=== PATIENT | male | born 1960 | race Caucasian/White ===

== ENCOUNTER 2016-10-13 03:05 | Inpatient (IN) | payer OTHER ==
[~2016-10-13] VITALS: Ht 177.8 cm; Wt 70.3 kg
[2016-10-13 03:15] VITALS: BP 193/90
--- NOTE | 2016-10-13 03:20 | NUR ---
PT TAKEN TO BED 6
--- NOTE | 2016-10-13 03:25 | NUR ---
PATIENT PRESENTS TO ED WITH C/O SEVERE ABDOMINAL PAIN. VOMINTING X5 TIMES; SKIN IS PINK/WARM/DRY; AAOX4 WITH EVEN AND STEADY GAIT; LUNGS CLEAR BL; HR EVEN AND REGULAR; PT DENIES ANY FEVER, CP, SOB, OR COUGH AT THIS TIME; PATIENT STATES PAIN OF 10/10 AT THIS TIME; VSS; PATIENT POSITIONED FOR COMFORT; HOB ELEVATED; BEDRAILS UP X2; BED DOWN. ER MD MADE AWARE OF PT STATUS.
--- NOTE | 2016-10-13 03:29 | NUR ---
Dr. Chen evaluating patient at bedside.
[2016-10-13] MEDS ORDERED: ONDANSETRON 4 MG/2 ML VIAL IVP ONE (03:30)
[2016-10-13] MEDS ORDERED: NACL 0.9% 1,000 ML IV SCH (03:30)
[2016-10-13] MEDS ORDERED: PANTOPRAZOLE 40 MG INJ VIAL IVP ONE (03:30)
[2016-10-13] MEDS ORDERED: MORPHINE SULFATE 4 MG/ML SYR IVP ONE ×2 (03:30→05:10)
[2016-10-13 03:50] LABS: HEMATOCRIT 52.3 % (36-52); MEAN CORPUSCULAR HEMOGLOBIN 28 pg (27-31); MEAN CORPUSCULAR HGB CONC 32 g/dL (33-37); MEAN CORPUSCULAR VOLUME 88 fL (80-94); PLATELET COUNT (AUTO) 277 K/uL (140-450); RED BLOOD CELL COUNT(AUTO) 5.98 MIL/uL (4.20-6.10); RED CELL DISTRIBUTION WIDTH 13.2 % (11.6-13.7); WHITE BLOOD COUNT (AUTO) 20.1 K/uL (4.8-10.8)
[2016-10-13 04:01] LABS: ALBUMIN 4.2 g/dL (3.4-5.0); ANION GAP 16.2 (8-16); CARBON DIOXIDE 25.8 mmol/L (21-32); CREATININE 0.6 mg/dL (0.6-1.3); TOTAL BILIRUBIN 0.8 mg/dL (0.0-1.0); TOTAL PROTEIN, SERUM 8.4 g/dL (6.4-8.2)
[2016-10-13 04:04] LABS: EOSINOPHILS % (MANUAL) 1 % (0-4); LYMPHOCYTES % (MANUAL) 13 % (20-46); MONOCYTES % (MANUAL) 1 % (5-12); NEUTROPHILS % (MANUAL) 85 (43-65); PLATELET ESTIMATE ADEQUATE
--- NOTE | 2016-10-13 04:24 | NUR ---
PT TAKEN TO CT
[2016-10-13 04:40] LABS: APPEARANCE,URINE CLEAR (CLEAR); BILIRUBIN,URINE NEGATIVE (NEGATIVE); BLOOD, URINE TRACE-I (NEGATIVE); COLOR,URINE YELLOW (YELLOW); LEUKOCYTE ESTERASE ,URINE NEGATIVE (NEGATIVE); NITRITE, URINE NEGATIVE (NEGATIVE); PH,URINE 7.5 (5.0-9.0); PROTEIN,URINE 1+ (NEGATIVE); UGLUCOSE 1+ (NEGATIVE); UROBILINOGEN,URINE 0.2 EU/dL (0.2 - 1)
[2016-10-13] MEDS ORDERED: NACL 0.9% 1,000 ML IV ONE ×2 (04:45→05:05)
[2016-10-13] MEDS ORDERED: PIPERACILLIN/TAZOBACTAM 3.375 GM in DEXTROSE 5% 50 ML IV ONE (04:45)
[2016-10-13 04:52] LABS: BACTERIA,URINE RARE /HPF (None Seen); SQUAMOUS EPITHELIAL CELL,UR None Seen /LPF (0-3 (FEW)); WBC,URINE NONE SEEN /HPF (0-5)
[2016-10-13] MEDS ORDERED: PIPERACILLIN/TAZOBACTAM 3.375 GM VIAL IV ONE (04:59)
--- NOTE | 2016-10-13 05:00 | NUR ---
PT RETURNED FROM CT
[2016-10-13] MEDS ORDERED: MORPHINE SULFATE 2 MG/ML SYR IVP PRN (05:05)
[2016-10-13] MEDS ORDERED: DOCUSATE SODIUM 100 MG GELCAP PO PRN (05:05)
[2016-10-13] MEDS ORDERED: HYDROcodone/APAP 5/325 MG 1 TAB TAB PO PRN (05:05)
[2016-10-13] MEDS ORDERED: ACETAMINOPHEN 325 MG TAB PO PRN (05:05)
[2016-10-13] MEDS ORDERED: POTASSIUM CHLORIDE 10 MEQ TABER PO ONE (05:10)
--- NOTE | 2016-10-13 06:00 | NUR ---
REPORT GIVEN TO WOOD, CHARGE NURSE, PT IS GOING TO ADMITTED TO ROOM 112B.
[2016-10-13 06:34] LABS: LACTIC ACID 2.2 mmol/L (0.4-2.0)
[2016-10-13 06:35] LABS: INR 1.2 (0.8-1.2); PARTIAL THROMBOPLASTIN TIME 27.7 secs (22-35.6); PROTHROMBIN TIME 11.4 secs (10.8-13.4)
[2016-10-13 06:55] LABS: ALBUMIN 4.2 g/dL (3.4-5.0); BILIRUBIN,DIRECT 0.2 mg/dL (0.0-0.3); FREE T4 (FREE THYROXINE) 1.41 ng/dL (0.76-1.46); MAGNESIUM 1.7 mg/dL (1.8-2.4); PHOSPHORUS 3.1 mg/dL (2.5-4.9); THYROID STIMULATING HORMONE 0.58 uIU/mL (0.34-3.76); TOTAL BILIRUBIN 0.7 mg/dL (0.0-1.0); TOTAL PROTEIN, SERUM 8.4 g/dL (6.4-8.2)
--- NOTE | 2016-10-13 07:00 | NUR ---
PT TRANSFERRED TO ROOM 112B VIA RNEY, PT IS IN STABLE CONDITION AT THIS TIME, VSS.
--- NOTE | 2016-10-13 07:00 | NUR ---
PT AWAKE AND ALERT, NO SIGNS OF ACUTE DISTRESS, BREATHING EVEN AND UNLABORED BILATERALLY, BOWEL SOUNDS PRESENT IN ALL 4 QUADRANTS, NO ABDOMINAL DISTENTION, BOWEL AND BLADDER CONTINENCE, AMBULATES WITH ASSIST, BED IN LOW POSITION WITH BILATERAL HALF SIDE RAILS UP, CALL LIGHT WITHIN REACH, PT. COMPLAINT OF PAIN 9/10 IN ABDOMEN.
[2016-10-13 07:28] LABS: AMPHETAMINE, URINE NEG. ng/ml (NEG <=1000); BARBITURATE, URINE NEG. ng/ml (NEG <=200); BENZODIAZEPINE, URINE NEG. ng/mL (NEG <=200); CANNABINOID, URINE POS. ng/mL (NEG <=50); COCAINE, URINE NEG. ng/mL (NEG <=300); OPIATE, URINE NEG. ng/mL (NEG <=2000); PHENCYCLIDINE SCREEN,URINE NEG. ng/mL (NEG <=25)
[2016-10-13 08:00] VITALS: BP 165/116
[2016-10-13] MEDS ORDERED: MAGNESIUM OXIDE 400 MG TAB PO SCH (08:15)
[2016-10-13] MEDS: NACL 0.9% 1,000 ML IV SCH ×5 (08:31→23:42)
[2016-10-13] MEDS: ONDANSETRON 4 MG/2 ML VIAL IVP PRN ×2 (08:31→17:07)
[2016-10-13] MEDS: FOLIC ACID 1 MG TAB PO SCH (08:32)
[2016-10-13] MEDS: PANTOPRAZOLE 40 MG TABEC PO SCH (08:32)
[2016-10-13] MEDS: MULTIVITAMIN 1 TAB PO SCH (08:32)
[2016-10-13] MEDS: LISINOPRIL 5 MG TAB PO SCH (08:33)
[2016-10-13] MEDS: LORazepam 2 MG/ML VIAL IVP PRN ×2 (08:38→17:07)
--- NOTE | 2016-10-13 08:52 | NUR ---
CHYNA NOTE SPOKE WITH ADITYA OF [facility] PH# [phone]. SENT INITIAL REVIEW TO [facility] FAX# [phone] PH# [phone]
[2016-10-13 09:09] LABS: CHOL/HDL RATIO 5.8 (1-4.5)
[2016-10-13] MEDS ORDERED: hydrALAZINE 20 MG/ML VIAL IVP SCH (09:45)
[2016-10-13] MEDS: DOCUSATE SODIUM 100 MG GELCAP PO SCH ×2 (09:57→20:26)
[2016-10-13] MEDS ORDERED: POTASSIUM CHLORIDE 10 MEQ TABER PO SCH (10:30)
[2016-10-13] MEDS ORDERED: KCL 20 MEQ/WATER INJ PREMIX 200 ML IV SCH (10:30)
[2016-10-13] MEDS ORDERED: ATORVASTATIN 20 MG TAB PO SCH (10:30)
[2016-10-13] MEDS ORDERED: PNEUMOCOCCAL VACCINE 23 MCG/0.5 ML VIAL IMVAC SCH (11:00)
[2016-10-13 11:23] VITALS: BP 184/94
[2016-10-13] MEDS: AMPICILLIN/SULBACTAM 1.5 GM in NACL 0.9% 50 ML IV SCH ×2 (11:26→17:16)
[2016-10-13] MEDS: HYDROmorphone 1 MG/ML AMP IVP PRN ×3 (13:03→20:43)
[2016-10-13] MEDS: LORazepam 1 MG TAB PO SCH ×2 (13:03→20:26)
[2016-10-13 16:00] VITALS: BP 163/94
--- NOTE | 2016-10-13 18:56 | NUR ---
PT AWAKE AND ALERT, NO SIGNS OF ACUTE DISTRESS, BREATHING EVEN AND UNLABORED BILATERALLY, WILL ENDORSE TO INTERNIST NURSE FOR CONTINUITY OF CARE.
--- NOTE | 2016-10-13 19:06 | NUR ---
PT AWAKE AND ALERT, NO SIGNS OF ACUTE DISTRESS. ENDORSED TO PULMONARY SPECIALIST NURSE FOR CONTINUITY OF CARE.
--- NOTE | 2016-10-13 19:30 | NUR ---
RECEIVED REPORT FROM DAY RN AT BEDSIDE, PATIENT IS AAOX4 RESTING IN BED, ON ROOM AIR, NO SOB OR SIGN OF DISTRESS AT THIS TIME,IV TO RAC PATENT AND INTACT WITH IVF INFUSING WELL, SKIN INTACT, PATIENT NPO EXCEPT MEDS, EXPLAINED TO PATIENT, VERBALIZED UNDERSTANDING. DENIES PAIN AT THIS TIME, DISCUSSED PLAN OF CARE WITH PT, PT VERBALIZED UNDERSTANDING, CALL LIGHT WITHIN REACH. WILL CONTINUE TO MONITOR.
--- NOTE | 2016-10-13 20:47 | NUR ---
PM MEDS ADMINISTERED PATIENT TOLERATED WELL, WILL CONTINUE TO MONITOR.
--- NOTE | 2016-10-13 22:30 | NUR ---
PATIENT SLEEPING, NO SOB OR SIGN OF DISTRESS AT THIS TIME, CALL LIGHT WITHIN REACH. WILL CONTINUE TO MONITOR
[2016-10-14] VITALS: BP 143/80
[2016-10-14] MEDS: AMPICILLIN/SULBACTAM 1.5 GM in NACL 0.9% 50 ML IV SCH ×4 (00:18→17:01)
--- NOTE | 2016-10-14 00:21 | NUR ---
VITAL SIGNS STABLE, NO SOB OR SIGN OF DISTRESS AT THIS TIME,CALL LIGHT WITHIN REACH. WILL CONTINUE TO MONITOR.
[2016-10-14] MEDS: HYDROmorphone 1 MG/ML AMP IVP PRN ×5 (01:06→20:49)
--- NOTE | 2016-10-14 02:30 | NUR ---
PATIENT SLEEPING, NO SOB OR SIGN OF DISTRESS AT THIS TIME, CALL LIGHT WITHIN REACH. WILL CONTINUE TO MONITOR
--- NOTE | 2016-10-14 04:07 | NUR ---
PATIENT SLEEPING, NO SOB OR SIGN OF DISTRESS AT THIS TIME, CALL LIGHT WITHIN REACH. WILL CONTINUE TO MONITOR.
[2016-10-14] MEDS: LORazepam 1 MG TAB PO SCH ×3 (05:15→20:48)
[2016-10-14 06:12] LABS: BASOPHILS # (AUTO) 0.1 K/uL (0.00-0.22); BASOPHILS % (AUTO) 1.1 % (0.0-2.0); EOSINOPHILS # (AUTO) 0.2 K/uL (0-0.4); EOSINOPHILS % (AUTO) 2.3 % (0.0-4.0); HEMATOCRIT 47.1 % (36-52); HEMOGLOBIN 15.4 g/dL (12.0-18.0); LYMPHOCYTES # (AUTO) 1.3 K/uL (2.0-11.5); LYMPHOCYTES % (AUTO) 12.1 % (20.5-51.1); MEAN CORPUSCULAR HEMOGLOBIN 29 pg (27-31); MEAN CORPUSCULAR HGB CONC 33 g/dL (33-37); MEAN CORPUSCULAR VOLUME 88 fL (80-94); MONOCYTES # (AUTO) 0.9 K/uL (0.8-1.0); MONOCYTES % (AUTO) 8.2 % (1.7-9.3); NEUTROPHILS # (AUTO) 8.2 K/uL (1.8-7.7); NEUTROPHILS % (AUTO) 76.3 % (42.2-75.2); PLATELET COUNT (AUTO) 182 K/uL (140-450); RED BLOOD CELL COUNT(AUTO) 5.38 MIL/uL (4.20-6.10); RED CELL DISTRIBUTION WIDTH 13.4 % (11.6-13.7); WHITE BLOOD COUNT (AUTO) 10.7 K/uL (4.8-10.8)
[2016-10-14 06:37] LABS: MAGNESIUM 1.8 mg/dL (1.8-2.4); PHOSPHORUS 2.6 mg/dL (2.5-4.9)
[2016-10-14 06:39] LABS: ANION GAP 10.6 (8-16); CALCIUM 8.4 mg/dL (8.5-10.1); CARBON DIOXIDE 27.8 mmol/L (21-32); CREATININE 0.5 mg/dL (0.6-1.3); POTASSIUM 3.4 mmol/L (3.5-5.1)
[2016-10-14] MEDS: NACL 0.9% 1,000 ML IV SCH ×5 (07:05→21:48)
--- NOTE | 2016-10-14 07:33 | NUR ---
ENDORSED REPORT TO DAY RN AT BEDSIDE, PATIENT IN STABLE CONDITION
--- NOTE | 2016-10-14 07:35 | NUR ---
RECEIVED REPORT FROM NIGHT RN. PT AAOX4, IV PATENT AND INTACT, STATES ABD PAIN 11/11, WILL MEDICATE ORDERED, NO S/S OF ACUTE DISTRESS, CALL LIGHT WITHIN REACH, SAFETY MEASURE ENSURED, WILL CONTINUE TO MONITOR.
[2016-10-14 08:00] VITALS: BP 151/83
[2016-10-14] MEDS: MULTIVITAMIN 1 TAB PO SCH (09:52)
[2016-10-14] MEDS: DOCUSATE SODIUM 100 MG GELCAP PO SCH ×2 (09:52→20:49)
--- NOTE | 2016-10-14 09:52 | NUR ---
PT TOLERATED AM MEDS WELL, NO S/S OF DISTRESS, CALL LIGHT WITHIN REACH, WILL CONTINUE TO MONITOR
[2016-10-14] MEDS: LISINOPRIL 5 MG TAB PO SCH (09:53)
[2016-10-14] MEDS: ATORVASTATIN 20 MG TAB PO SCH (09:54)
[2016-10-14] MEDS: FOLIC ACID 1 MG TAB PO SCH (09:55)
[2016-10-14] MEDS: PANTOPRAZOLE 40 MG TABEC PO SCH (10:10)
--- NOTE | 2016-10-14 11:58 | NUR ---
PT SLEEPING IN BED , NO S/S OF ACUTE DISTRESS, CALL LIGHT WITHIN REACH, SAFETY MEASURE ENSURED, WILL CONTINUE TO MONITOR.
--- NOTE | 2016-10-14 14:30 | NUR ---
PT SLEEPING IN BED, NO S/S OF DISTRESS, CALL LIGHT WITHIN REACH, WILL CONTINUE TO MONITOR
[2016-10-14 16:00] VITALS: BP 154/86
[2016-10-14] MEDS ORDERED: POTASSIUM CHLORIDE 10 MEQ TABER PO SCH (16:30)
--- NOTE | 2016-10-14 17:21 | NUR ---
PT RESTING IN BED, PT STATED ABDOMINAL PAIN 5/10, MEDICATED ORDERED, NO S/S OF DISTRESS, CALL LIGHT WITHIN REACH, WILL CONTINUE TO MONITOR.
[2016-10-14] MEDS ORDERED: ZOLPIDEM 10 MG TAB PO PRN (17:25)
--- NOTE | 2016-10-14 19:23 | NUR ---
ENDORSED PLAN OF CARE TO NIGHT RN. PT REMAINS IN STABLE CONDITION.
--- NOTE | 2016-10-14 19:45 | NUR ---
RECEIVED REPORT FROM BALAJI MAURICE. PATIENT IS ALERT, AWAKE AND RESTING IN BED. NO SIGNS OF RESPIRATORY DISTRESS OR SOB NOTED. VITAL SIGNS ARE STABLE. NO REPORTS OF PAIN OR DISCOMFORT AT THIS TIME. BREATH SOUNDS ARE CLEAR AND BOWEL SOUNDS ARE ACTIVE. THERE IS A #20 IN THE PATIENT'S RIGHT AC RECEIVING NORMAL SALINE AT 220 ML/HR. SITE IS DRY, INTACT, AND PATENT. EXPLAINED PLAN OF CARE TONIGHT INCLUDES SCHEDULED MEDICATION ADMINISTRATION, VITAL SIGNS, AND MONITORING. PATIENT VERBALIZED UNDERSTANDING. PATIENT'S NEEDS MET AT THIS TIME. CALL LIGHT WITHIN REACH. WILL CONTINUE TO MONITOR PATIENT.
[2016-10-14 20:00] VITALS: BP 141/85
--- NOTE | 2016-10-14 21:03 | NUR ---
PATIENT TOLERATED DUE MEDICATIONS. PATIENT'S NEEDS MET AT THIS TIME. CALL LIGHT WITHIN REACH. WILL CONTINUE TO MONITOR PATIENT.
--- NOTE | 2016-10-14 22:52 | NUR ---
ROUNDED ON PATIENT. PATIENT RESTING COMFORTABLY IN BED. NO S/S OF RESPIRATORY DISTRESS OR DISCOMFORT NOTED. CALL LIGHT WITHIN REACH. CONTINUE TO MONITOR PATIENT.
[2016-10-15] VITALS: BP 156/86
[2016-10-15 00:20] LABS: BLOOD GAS BASE EXCESS -1.8 mmol/L (-2.0-2.0); BLOOD GAS PCO2 34.8 mmHg (20-50); BLOOD GAS PH 7.418 (7.35-7.45)
[2016-10-15 00:21] LABS: BLOOD GAS O2 SAT% 97.5 % (92.0-98.5); FRACTIONATED INSPIRED OXYGEN 0.21 % (0.21-100.00)
--- NOTE | 2016-10-15 00:30 | NUR ---
PATIENT RESTING IN BED, BUT IS AROUSED BY NAME. VITALS ARE WNL. PATIENT REPORTS ABDOMINAL PAIN 5/10. WILL MEDICATE PER DOCTOR'S ORDERS. PATIENT'S NEEDS MET AT THIS TIME. CALL LIGHT WITHIN REACH. WILL CONTINUE TO MONITOR PATIENT.
[2016-10-15] MEDS: AMPICILLIN/SULBACTAM 1.5 GM in NACL 0.9% 50 ML IV SCH ×3 (00:34→11:36)
[2016-10-15] MEDS: HYDROmorphone 1 MG/ML AMP IVP PRN ×3 (00:39→09:15)
[2016-10-15] MEDS: NACL 0.9% 1,000 ML IV SCH ×2 (04:22→10:17)
[2016-10-15] MEDS: LORazepam 1 MG TAB PO SCH (04:24)
--- NOTE | 2016-10-15 04:32 | NUR ---
PATIENT REPORTING ABDOMINAL PAIN 5/10. PATIENT'S BLOOD PRESSURE IS 165/88 AND HR 77. ADMINISTERED DILAUDID 1MG IVP PRN PER DOCTOR'S ORDERS. PATIENT'S NEEDS MET AT THIS TIME. CALL LIGHT WITHIN REACH. WILL CONTINUE TO MONITOR PATIENT.
--- NOTE | 2016-10-15 05:45 | NUR ---
ROUNDED ON PATIENT. PATIENT RESTING COMFORTABLY IN BED. NO S/S OF DISTRESS OR SOB NOTED. CALL LIGHT WITHIN REACH. CONTINUE TO MONITOR.
[2016-10-15 06:30] LABS: BASOPHILS # (AUTO) 0.1 K/uL (0.00-0.22); BASOPHILS % (AUTO) 1.9 % (0.0-2.0); EOSINOPHILS # (AUTO) 0.3 K/uL (0-0.4); EOSINOPHILS % (AUTO) 4.4 % (0.0-4.0); HEMATOCRIT 45.5 % (36-52); HEMOGLOBIN 14.7 g/dL (12.0-18.0); LYMPHOCYTES # (AUTO) 1.3 K/uL (2.0-11.5); LYMPHOCYTES % (AUTO) 17.4 % (20.5-51.1); MEAN CORPUSCULAR HEMOGLOBIN 28 pg (27-31); MEAN CORPUSCULAR HGB CONC 32 g/dL (33-37); MEAN CORPUSCULAR VOLUME 87 fL (80-94); MONOCYTES # (AUTO) 0.6 K/uL (0.8-1.0); MONOCYTES % (AUTO) 8.9 % (1.7-9.3); NEUTROPHILS % (AUTO) 67.4 % (42.2-75.2); PLATELET COUNT (AUTO) 165 K/uL (140-450); RED BLOOD CELL COUNT(AUTO) 5.24 MIL/uL (4.20-6.10); WHITE BLOOD COUNT (AUTO) 7.3 K/uL (4.8-10.8)
--- NOTE | 2016-10-15 06:43 | NUR ---
PATIENT AMBULATED TO BATHROOM. GAIT STEADY WITH NO SIGNS OF SOB NOTED. CONTINUE TO MONITOR.
--- NOTE | 2016-10-15 07:16 | NUR ---
PATIENT HAS BEEN SCREENED AND CATEGORIZED MODERATE NUTRITION RISK. PATIENT WILL BE SEEN WITHIN 3-5 DAYS OF ADMISSION. 10/15/16-10/17/16 DAKOTAH MCMANUS MS, RDN
--- NOTE | 2016-10-15 07:25 | NUR ---
PATIENT RESTING IN BED. ALL NEEDS ATTENDED TO DURING SHIFT. ENDORSED CONTINUITY OF CARE TO SANTIAGO RN.
--- NOTE | 2016-10-15 07:30 | NUR ---
REPORT RECEIVED FROM PRECISION DANCER, PT AWAKE ALERT OX4, RESP EVEN UNLABORED ON ROOM AIR, PT SPEAKS CLEARLY, ABD SOFT, TENDER TO PALP, STATES PAIN IS SLIGHTLY BOTHERSOME BUT TOLERABLE, PLAN OF CARE REVIEWED, DENIES IMMEDIATE NEEDS, CALL PRESTON WITHIN REACH, SAFETY MEASURES IN PLACE, WILL CONTINUE TO MONITOR.
[2016-10-15 08:00] VITALS: BP 151/89
[2016-10-15] MEDS: FOLIC ACID 1 MG TAB PO SCH (08:08)
[2016-10-15] MEDS: LISINOPRIL 5 MG TAB PO SCH (08:08)
[2016-10-15] MEDS: PANTOPRAZOLE 40 MG TABEC PO SCH (08:09)
[2016-10-15] MEDS: ATORVASTATIN 20 MG TAB PO SCH (08:09)
[2016-10-15] MEDS: MULTIVITAMIN 1 TAB PO SCH (08:10)
[2016-10-15] MEDS: DOCUSATE SODIUM 100 MG GELCAP PO SCH (08:10)
[2016-10-15 08:52] LABS: ANION GAP 16.2 (8-16); CALCIUM 8.2 mg/dL (8.5-10.1); CARBON DIOXIDE 23.9 mmol/L (21-32); CREATININE 0.4 mg/dL (0.6-1.3); POTASSIUM 3.1 mmol/L (3.5-5.1)
[2016-10-15 09:16] LABS: MAGNESIUM 1.7 mg/dL (1.8-2.4); PHOSPHORUS 3.4 mg/dL (2.5-4.9)
--- NOTE | 2016-10-15 10:20 | NUR ---
PT SEVERO PO FULL LIQ WELL, NO C/O N/V/PAIN, PT UP OUT OF BED TO BATHROOM WITH STEADY GAIT, CALL PRESTON WITHIN REACH, WILL CONTINUE TO MONITOR.
[2016-10-15] MEDS ORDERED: ACET-2858 PO (10:37)
[2016-10-15] MEDS ORDERED: LISI10TA11 PO (10:37)
[2016-10-15] MEDS ORDERED: ONDA4TAB PO (10:37)
[2016-10-15] MEDS ORDERED: MAGN400T7 PO (10:37)
[2016-10-15] MEDS ORDERED: DOCU-67 PO (10:37)
[2016-10-15] MEDS ORDERED: POTA10TA10 PO (10:37)
[2016-10-15] MEDS ORDERED: POTASSIUM CHLORIDE 10 MEQ TABER PO SCH (11:00)
[2016-10-15] MEDS ORDERED: MAGNESIUM OXIDE 400 MG TAB PO SCH (11:00)
[2016-10-15] MEDS ORDERED: ATOR20TA PO (11:03)
[2016-10-15] MEDS ORDERED: OMEP20TC24 PO (11:14)
[2016-10-15] MEDS ORDERED: LISINOPRIL 5 MG TAB PO SCH (11:30)
[2016-10-15 11:45] VITALS: BP 153/82
[2016-10-15 12:05] VITALS: BP 153/82
--- NOTE | 2016-10-15 12:39 | NUR ---
DISCHARGE INSTRUCTIONS AND RX GIVEN AND EXPLAINED TO PT, PT VERBALIZED FULL UNDERSTANDING, IV DC'D, CATH TIP INTACT, BLEEDING CONTROLLED, PT UP OUT OF BED WITHOUT PROBLEM, ESCORTED OUT FOR DC.
== END 2016-10-15 12:30 | disposition home or self-care (01) | DRG 720 ==
LOC: MED 03:05 → MTU 05:07
PROVIDERS: ADMIT Family Medicine; ATTEND Family Medicine
DX: A41.9 Sepsis, unspecified organism (principal); N17.0 Acute kidney failure with tubular necrosis; K85.90 Acute pancreatitis without necrosis or infection, unspecified; E83.42 Hypomagnesemia; K86.0 Alcohol-induced chronic pancreatitis; K29.70 Gastritis, unspecified, without bleeding; E87.6 Hypokalemia; F10.20 Alcohol dependence, uncomplicated; K86.3 Pseudocyst of pancreas; E78.5 Hyperlipidemia, unspecified; Y90.9 Presence of alcohol in blood, level not specified; Z53.29 Procedure and treatment not carried out because of patient's decision for other reasons
CPT/HCPCS: 36415; 36600; 71010; 76705; 80048; 80053; 80076; 80305; 81001; 82140; 82150; 82803; 83036; 83605; 83615; 83690; 83735; 83880; 84100; 84439; 84443; 85025; 85610; 85730; 87040; 87081; 87086; 93005; 96361; 96365; 96375; 96376; 99291; C9113; G0482; J0295; J0360; J1170; J2060; J2270; J2405; J2543; J3480; J7030; J7060; Q0092; Q9967

== ENCOUNTER 2016-11-20 12:45 | Inpatient (IN) | payer OTHER ==
[~2016-11-20] VITALS: Ht 177.8 cm; Wt 65.8 kg
[~2016-11-20 12:45] MED LIST: ACET-2858 PO; ATOR20TA PO; DOCU-67 PO; LISI10TA11 PO; MAGN400T7 PO; OMEP20TC24 PO; ONDA4TAB PO; POTA10TA10 PO
[2016-11-20] MEDS ORDERED: ALUMINUM HYD/MAG/SIMETHICONE 30 ML, DICYCLOMINE HCL LIQUID 20 MG, LIDOCAINE VISCOUS 2% ... PO ONE ×3 (12:55)
[2016-11-20 13:37] LABS: ALBUMIN 4.3 g/dL (3.4-5.0); ANION GAP 22.5 (8-16); CALCIUM 8.7 mg/dL (8.5-10.1); CARBON DIOXIDE 20.4 mmol/L (21-32); CREATININE 0.5 mg/dL (0.6-1.3); TOTAL BILIRUBIN 0.9 mg/dL (0.0-1.0); TOTAL PROTEIN, SERUM 8.6 g/dL (6.4-8.2)
[2016-11-20 13:38] LABS: BASOPHILS # (AUTO) 0.3 K/uL (0.00-0.22); BASOPHILS % (AUTO) 1.8 % (0.0-2.0); EOSINOPHILS # (AUTO) 0.3 K/uL (0-0.4); EOSINOPHILS % (AUTO) 1.8 % (0.0-4.0); HEMATOCRIT 51.1 % (36-52); HEMOGLOBIN 16.7 g/dL (12.0-18.0); LYMPHOCYTES # (AUTO) 0.8 K/uL (2.0-11.5); LYMPHOCYTES % (AUTO) 4.4 % (20.5-51.1); MEAN CORPUSCULAR HEMOGLOBIN 28 pg (27-31); MEAN CORPUSCULAR HGB CONC 33 g/dL (33-37); MEAN CORPUSCULAR VOLUME 87 fL (80-94); MONOCYTES # (AUTO) 0.6 K/uL (0.8-1.0); MONOCYTES % (AUTO) 3.4 % (1.7-9.3); NEUTROPHILS # (AUTO) 16.8 K/uL (1.8-7.7); NEUTROPHILS % (AUTO) 88.6 % (42.2-75.2); PLATELET COUNT (AUTO) 193 K/uL (140-450); RED CELL DISTRIBUTION WIDTH 14.3 % (11.6-13.7)
[2016-11-20 13:43] LABS: POTASSIUM 2.9 mmol/L (3.5-5.1)
[2016-11-20] MEDS ORDERED: POTASSIUM CHLORIDE 10 MEQ TABER PO ONE (13:45)
[2016-11-20 13:47] LABS: WHITE BLOOD COUNT (AUTO) 18.8 K/uL (4.8-10.8)
--- NOTE | 2016-11-20 14:10 | NUR ---
PATIENT BIB FAMILY C/O N/V AND ABD PAIN x 1 DAY. . PT STATES PAIN STARTED AFTER DRINKING ALCOHOL .SKIN IS PINK/WARM/DRY; AAOX4 WITH EVEN AND STEADY GAIT; LUNGS CLEAR BL; HR EVEN AND REGULAR; PT DENIES ANY FEVER, CP, SOB, OR COUGH AT THIS TIME; PATIENT STATES PAIN OF 10/10 ABDOMINAL PAIN AT THIS TIME;PATIENT POSITIONED FOR COMFORT; HOB ELEVATED; BEDRAILS UP X2; BED DOWN. ALL MONITORS IN PLACED.
[2016-11-20] MEDS ORDERED: NACL 0.9% 1,000 ML IV ONE ×2 (14:20→16:10)
[2016-11-20] MEDS ORDERED: MORPHINE SULFATE 4 MG/ML SYR IVP ONE ×2 (14:20→16:40)
--- NOTE | 2016-11-20 14:27 | NUR ---
Dr. Ho evaluating patient at bedside.
[2016-11-20] MEDS ORDERED: HYDROcodone/APAP 5/325 MG 1 TAB TAB PO PRN (14:55)
[2016-11-20] MEDS ORDERED: ACETAMINOPHEN 325 MG TAB PO PRN (14:55)
[2016-11-20] MEDS ORDERED: ONDANSETRON 4 MG/2 ML VIAL IVP PRN (14:55)
[2016-11-20] MEDS ORDERED: hydrALAZINE 20 MG/ML VIAL IVP ONE ×2 (15:25→17:00)
--- NOTE | 2016-11-20 15:29 | NUR ---
PT HAS A BLOOD PRESSURE OF 184/106;RECHECKED BP STILL HIGH;NOTIFIED DELANEY HERNANDEZ;
--- NOTE | 2016-11-20 15:55 | NUR ---
RECHECKED BP;BP OF 185/97;
[2016-11-20 16:00] LABS: APPEARANCE,URINE CLEAR (CLEAR); BILIRUBIN,URINE NEGATIVE (NEGATIVE); BLOOD, URINE 1+ (NEGATIVE); COLOR,URINE YELLOW (YELLOW); LEUKOCYTE ESTERASE ,URINE NEGATIVE (NEGATIVE); NITRITE, URINE NEGATIVE (NEGATIVE); PROTEIN,URINE TRACE (NEGATIVE); UGLUCOSE NEGATIVE (NEGATIVE); UROBILINOGEN,URINE 0.2 EU/dL (0.2 - 1)
[2016-11-20] MEDS ORDERED: ENALAPRILAT 2.5 MG/2 ML VIAL IVP ONE (16:10)
[2016-11-20 16:11] LABS: FREE T4 (FREE THYROXINE) 1.16 ng/dL (0.76-1.46); MAGNESIUM 1.7 mg/dL (1.8-2.4); PHOSPHORUS 3.4 mg/dL (2.5-4.9); THYROID STIMULATING HORMONE 0.81 uIU/mL (0.34-3.76)
[2016-11-20 16:12] LABS: AMPHETAMINE, URINE NEG. ng/ml (NEG <=1000); BARBITURATE, URINE NEG. ng/ml (NEG <=200); BENZODIAZEPINE, URINE NEG. ng/mL (NEG <=200); CANNABINOID, URINE POS. ng/mL (NEG <=50); COCAINE, URINE NEG. ng/mL (NEG <=300); OPIATE, URINE NEG. ng/mL (NEG <=2000); PHENCYCLIDINE SCREEN,URINE NEG. ng/mL (NEG <=25)
--- NOTE | 2016-11-20 16:15 | NUR ---
BP OF 193/103;AFTER HYDRALAZINE;NOTIFIED ER MD;ORDERED VASOTEC;WILL; CONTINUE TO MONITOR PT.
[2016-11-20 16:16] LABS: INR 1.1 (0.8-1.2); PARTIAL THROMBOPLASTIN TIME 26.5 secs (22-35.6); PROTHROMBIN TIME 11.4 secs (10.8-13.4)
[2016-11-20 16:24] LABS: BACTERIA,URINE None Seen /HPF (None Seen); RBC,URINE 0-5 (RARE) /HPF (0-5); SQUAMOUS EPITHELIAL CELL,UR None Seen /LPF (0-3 (FEW)); WBC,URINE NONE SEEN /HPF (0-5)
--- NOTE | 2016-11-20 16:40 | NUR ---
SPOKE TO REGARDING PATIENTS UNCONTROLLED BP AFTER GIVING APRESOLIN 5MG AND VASOTEC 5MG.BP STILL 193/103. SUGGESTED TO IF WILL CONSIDER BE ADMITTED TO ICU INSTEAD OF TELEMETRY. DR. SOLIMAN WILL CALL ME BACK AFTER TALKING TO YUVAL.
--- NOTE | 2016-11-20 17:00 | NUR ---
DR. RIVERA CALLED BACK AND SPOKE TO . PER DR. RIVERA WILL SEND PATIENT TO TELEMETRY. SPOKE TO TELEMETRY CHARGE NURSE NINFA. NURSING SAMPLE WASHER BAKARI TALKING TO DR. SOLIMAN.
--- NOTE | 2016-11-20 17:14 | NUR ---
RECHECKED BP;193/99;HR OF 90;PLACED PT IN COMFORTABLE POSITION;SAFETY MEASURES DONE;WILL CONTINUE TO MONITOR PT.
--- NOTE | 2016-11-20 17:31 | NUR ---
CALLED ICU TO GIVE REPORT;INFORMED ME THEY WILL CALL BACK AFTER 5 MINUTES BECAUSE THEY DON'T HAVE A BED YET;
--- NOTE | 2016-11-20 17:44 | NUR ---
Patient will be admitted to care of DR RIVERA. Admited to ICU. Belongings list completed. Report to KAYLENE MENEZES.
--- NOTE | 2016-11-20 17:50 | NUR ---
ADMITTED PT FROM ER BY [facility], PT AWAKE, ALERT, AND ORIENTED. BEDSIDE MONITOR SHOWS SR. ON ROOM AIR, NO S/S OF RESPIRATORY DISTRESS NOTED. ABDOMEN SOFT WITH ACTIVE BOWEL SOUNDS. PT ABLE TO MOVE ALL HIS EXTREMITIES. IV TO LEFT AC # 20, INTACT AND PATENT. BP 193/115. NOTIFIED DR. RO. POC EXPLAINED TO PT, PT VERBALIZED UNDERSTANDING, HOB ELEVATED 30 DEGREES WITH LOW BED POSITION. CALL LIGHT IN REACH, WILL CONTINUE TO MONITOR.
[2016-11-20 18:00] VITALS: BP 193/115
[2016-11-20] MEDS: NACL 0.9% 1,000 ML IV SCH ×2 (18:00→21:38)
--- NOTE | 2016-11-20 18:30 | NUR ---
IN TO SEE PT. WILL FOLLOW UP.
[2016-11-20] MEDS ORDERED: LORazepam 2 MG/ML VIAL IVP PRN (19:05)
[2016-11-20] MEDS ORDERED: KETOROLAC 15 MG/ML VIAL IVP PRN (19:05)
[2016-11-20] MEDS ORDERED: hydrALAZINE 20 MG/ML VIAL IVP PRN (19:05)
[2016-11-20] MEDS ORDERED: NACL 0.9% 500 ML IV ONE (19:10)
[2016-11-20] MEDS ORDERED: MAG SULF 2000 MG/WATER PREMIX 50 ML IV ONE (19:10)
[2016-11-20] MEDS ORDERED: POTASSIUM CHLORIDE 40 MEQ, LIDOCAINE 1% 25 MG in NACL 0.9% 250 ML IV ONE (19:10)
--- NOTE | 2016-11-20 19:10 | NUR ---
REPORT GIVEN TO TERESA. PT AWAKE, ALERT, AND ORIENTED. NO SOB. BP 186/94. O2 SAT 96%.
--- NOTE | 2016-11-20 19:20 | NUR ---
RECEIVED REPORT FROM DAY NURSE CLIF, KAYLENE FOR CONTINUATION OF CARE. PT IS AAOX4. PT IS ON ROOM AIR WITH NO S/S OF ACUTE RESP DISTRESS. PT LAND MANAGER SHOWS SR AT THIS TIME WITH A HR OF 95. PT HAS LEFT FA#20 IV SITE RUNNING NS AT 150ML/HR. IV SITE IS PATENT DRY AND INTACT. GOOD BLOOD RETURN NOTED.ABDOMEN IS SOFT WITH ACTIVE BOWEL SOUNDS. PT SKIN INTACT. PT ABLE TO MOVE ALL EXTREMITIES WITH NO DIFFICULTY. BED IN LOW POSITION, HOB UP 30 DEGREES. CALL LIGHT LEFT WITHIN REACH. SAFETY PRECAUTIONS MAINTAINED. WILL CONTINUE TO CLOSELY MONITOR.
--- NOTE | 2016-11-20 19:25 | NUR ---
CALLED AND SPOKE WITH DR KOFI RES IN REGARDS TO PAIN MED ORDER AND NPO ORDER. STATED HE WILL UPDATE ORDERS. WILL FOLLOW UP.
[2016-11-20 19:42] LABS: LACTIC ACID 1.5 mmol/L (0.4-2.0)
[2016-11-20 20:00] VITALS: BP 212/99
--- NOTE | 2016-11-20 20:00 | NUR ---
CALLED AND SPOKE WITH ADA FROM [facility] IN REGARDS TI VERIFYING MEDICATIONS. SHE STATED THAT THEY ARE HAVING TROUBLE ACCESSING OUR HOSPITAL AND WILL TAKE SOME TIME TO VERIFY ORDERS. WILL FOLLOW UP.
[2016-11-20] MEDS: MORPHINE SULFATE 2 MG/ML SYR IVP PRN ×2 (20:10→23:48)
--- NOTE | 2016-11-20 20:10 | NUR ---
MATT FROM [facility] CALLED AND SPOKE TO US REGARDING PATIENT HAVING A BLOOD CULTURE DONE BEFORE STARTING IV ANTIBIOTICS TONIGHT. WILL FOLLOW UP WITH ORDERS.
--- NOTE | 2016-11-20 20:20 | NUR ---
INFORMED DR. GOODMAN ON THE PHONE WHAT FREDERIC FROM CORPORATE OFFICE TOLD US TO ORDER BLOOD CULTURE TO THIS PATIENT BEFORE STARTING THE ANTIBIOTIC TONIGHT, HE SAID, HE'LL PUT THE ORDER.
[2016-11-20] MEDS: POTASSIUM CHLORIDE 10 MEQ TABER PO SCH (20:23)
[2016-11-20] MEDS ORDERED: LABETALOL 100 MG/20 ML VIAL IV ONE (20:25)
--- NOTE | 2016-11-20 20:40 | NUR ---
PT APPEARS TO BE SLEEPING AT THIS TIME. NO SOB NOTED. CURRENT BP IS 174/95
[2016-11-20] MEDS: LORazepam 1 MG TAB PO SCH (21:19)
[2016-11-20] MEDS ORDERED: KCL 20 MEQ/WATER INJ PREMIX 200 ML IV SCH (21:50)
[2016-11-20] MEDS ORDERED: cloNIDine 0.1 MG TAB PO SCH ×2 (21:50→22:00)
[2016-11-20] MEDS ORDERED: KCL 20 MEQ/WATER INJ PREMIX 0 ML IV ONE (21:51)
[2016-11-20] MEDS ORDERED: LIDOCAINE MPF 1% 50 MG/5 ML VIAL ONE (21:53)
[2016-11-20] MEDS ORDERED: ENALAPRILAT 2.5 MG/2 ML VIAL IVP SCH (21:55)
--- NOTE | 2016-11-20 21:59 | NUR ---
PT TAKEN OFF UNIT TO HAVE CT DONE.
--- NOTE | 2016-11-20 22:07 | NUR ---
PT BACK ON UNIT FROM HAVING CT DONE
--- NOTE | 2016-11-20 22:30 | NUR ---
TRANSFERRED PT TO [facility] FLOOR RM 106B ACCOMPANIED BY KAYLENE MOORE AND RENA CELESTE RN. PT VITALS STABLE. BEDSIDE REPORT GIVEN TO KAYLENE COLLADO.
[2016-11-20 22:35] VITALS: BP 164/94
--- NOTE | 2016-11-20 22:35 | NUR ---
RECEIVED PT TRANSFER FROM ICU ,REPORT GIVEN BY TERESA. ON TELE MONITOR. AWAKE,ALERT AND ORIENTED X4. WITH NO ACUTE DISTRESS NOTED. NO C/O PAIN A THIS TIME. HAS IVF INFUSING WELL ON THE LT FA#20. CLEAR AND PATENT. PLAN OF CARE DISCUSSED AND VERBALIZED UNDERSTANDING. CALL LIGHT AND URINAL PLACED WITHIN EASY REACH. WILL CONTINUE TO MONITOR.
[2016-11-20 23:55] VITALS: BP 150/89
[2016-11-20] MEDS: METOPROLOL 25 MG TAB PO SCH (23:55)
[2016-11-21] MEDS: AMPICILLIN/SULBACTAM 3 GM in NACL 0.9% 100 ML IV SCH ×4 (00:47→17:10)
[2016-11-21] MEDS ORDERED: AMPICILLIN/SULBACTAM 3 GM VIAL ONE ×2 (00:49→05:43)
--- NOTE | 2016-11-21 02:30 | NUR ---
PATIENT ASLEEP AT THIS TIME, RESPIRATION EVEN AND UNLABORED, NO S/S OF ACUTE DISTRESS NOTED, CALL LIGHT WITHIN REACH, SAFETY MEASURE ENSURED, WILL CONTINUE TO MONITOR.
[2016-11-21 04:00] VITALS: BP 155/89
[2016-11-21] MEDS: NACL 0.9% 1,000 ML IV SCH ×4 (04:14→20:56)
[2016-11-21] MEDS: MORPHINE SULFATE 2 MG/ML SYR IVP PRN ×3 (04:41→17:10)
--- NOTE | 2016-11-21 04:41 | NUR ---
PATIENT STATED PAIN 8/10 AROUND, EPIGASTRIC AREA, MEDICATED ORDERED, NO S/S OF ACUTE DISTRESS NOTED, RESPIRATION EVEN AND UNLABORED, CALL LIGHT WITHIN REACH, SAFETY MEASURE ENSURED, WILL CONTINUE TO MONITOR
[2016-11-21] MEDS: LORazepam 1 MG TAB PO SCH ×3 (05:44→20:55)
[2016-11-21 06:42] LABS: BASOPHILS % (AUTO) 0.3 % (0.0-2.0); EOSINOPHILS # (AUTO) 0.2 K/uL (0-0.4); EOSINOPHILS % (AUTO) 1.3 % (0.0-4.0); HEMATOCRIT 49.7 % (36-52); HEMOGLOBIN 16.4 g/dL (12.0-18.0); LYMPHOCYTES # (AUTO) 0.8 K/uL (2.0-11.5); LYMPHOCYTES % (AUTO) 6.2 % (20.5-51.1); MEAN CORPUSCULAR HEMOGLOBIN 29 pg (27-31); MEAN CORPUSCULAR HGB CONC 33 g/dL (33-37); MEAN CORPUSCULAR VOLUME 87 fL (80-94); MONOCYTES # (AUTO) 1.1 K/uL (0.8-1.0); MONOCYTES % (AUTO) 8.2 % (1.7-9.3); NEUTROPHILS # (AUTO) 10.9 K/uL (1.8-7.7); PLATELET COUNT (AUTO) 181 K/uL (140-450); RED BLOOD CELL COUNT(AUTO) 5.73 MIL/uL (4.20-6.10); RED CELL DISTRIBUTION WIDTH 14.1 % (11.6-13.7)
--- NOTE | 2016-11-21 07:21 | NUR ---
ENDORSED PLAN OF CARE TO DAY RN. PATIENT IS STABLE.
--- NOTE | 2016-11-21 07:23 | NUR ---
ENDORSED PT IN STABLE CONDITION TO AM NURSE.
--- NOTE | 2016-11-21 07:25 | NUR ---
RECEIVED REPORT FROM PM SHIFT RN AT BEDSIDE. PT IS SLEEPING, AROUSED EASILY. BREATHING EVEN AND UNLABORED. LEFT FA #20G IV ACCESS INTACT AND PATENT WITH IVF INFUSING @ 200 ML/HR. PT DENIED ANY CHEST PAIN, SOB, OR ANY DISCOMFORT AT THIS TIME AND VERBALIZED UNDERSTANDING NPO EXCEPT MEDS & PLAN OF CARE. CALL LIGHT WITHIN REACH. BED IN LOW POSITION. WILL CONTINUE TO MONITOR.
--- NOTE | 2016-11-21 07:36 | NUR ---
PATIENT HAS BEEN SCREENED AND CATEGORIZED HIGH NUTRITION RISK. PATIENT WILL BE SEEN WITHIN 1-2 DAYS OF ADMISSION. 11/21/16-11/22/[address]
[2016-11-21 07:43] LABS: ANION GAP 14.3 (8-16); CALCIUM 8.8 mg/dL (8.5-10.1); CARBON DIOXIDE 26.4 mmol/L (21-32); CREATININE 0.5 mg/dL (0.6-1.3); POTASSIUM 3.7 mmol/L (3.5-5.1)
[2016-11-21 07:58] LABS: CHOL/HDL RATIO 5.3 (1-4.5); PHOSPHORUS 3.3 mg/dL (2.5-4.9)
[2016-11-21 08:00] VITALS: BP 147/77
[2016-11-21] MEDS: LISINOPRIL 10 MG TAB PO SCH ×2 (08:48→20:54)
[2016-11-21] MEDS: METOPROLOL 25 MG TAB PO SCH ×2 (08:48→20:55)
[2016-11-21] MEDS: PANTOPRAZOLE 40 MG TABEC PO SCH (08:49)
[2016-11-21] MEDS: POTASSIUM CHLORIDE 10 MEQ TABER PO SCH ×2 (08:49→20:55)
[2016-11-21] MEDS: MAGNESIUM OXIDE 400 MG TAB PO SCH (08:49)
[2016-11-21] MEDS: ATORVASTATIN 20 MG TAB PO SCH (08:49)
--- NOTE | 2016-11-21 08:50 | NUR ---
SCHEDULED/DUE PO MEDS GIVEN ORDERED WITH SIP OF WATER AND TOLERATED WELL BY PT.
[2016-11-21] MEDS ORDERED: NON-FORMULARY ITEM (Omeprazole (Omeprazole) 1 TAB) PO SCH (09:00)
[2016-11-21] MEDS ORDERED: LISINOPRIL 10 MG TAB PO SCH (09:00)
--- NOTE | 2016-11-21 09:26 | NUR ---
CM NOTE INITIAL REVIEW FAXED TO [facility] [phone] CHYNA KEMPHA PH [phone]
[2016-11-21 12:00] VITALS: BP 144/83
--- NOTE | 2016-11-21 12:00 | NUR ---
INFORMED TO DR. KIRBY THAT KCL 40 mEq + xylocaline 1% IVPB Once should be cancelled. Pt has already had a dose of K rider. Per, Dr. KIRBY, HE WILL CANCEL THE ACTIVE ORDER.
--- NOTE | 2016-11-21 13:10 | NUR ---
IVPB GIVEN ORDERED AND INFUSING WELL. SCHEDULED/DUE PO MEDS GIVEN ORDERED WITH SIP OF WATER AND TOLERATED WELL BY PT.
[2016-11-21 16:00] VITALS: BP 147/74
--- NOTE | 2016-11-21 16:00 | NUR ---
V/S STABLE. SR ON MONITOR. NO ACUTE DISTRESS, NO SOB NOTED. CALL LIGHT WITHIN REACH.
--- NOTE | 2016-11-21 18:00 | NUR ---
PT RESTING IN BED IN NO ACUTE DISTRESS. CALL LIGHT WITHIN REACH.
--- NOTE | 2016-11-21 19:30 | NUR ---
ENDORSED REPORT AT BEDSIDE TO SHIRT IRONER SUPERVISOR RN FOR CONTINUITY OF CARE.
--- NOTE | 2016-11-21 19:35 | NUR ---
RECEIVED REPORT FROM DAY RN. PATIENT RESTING IN BED, PATIENT AWAKE, ALERT, ORIENTEDX4, DENIES PAIN AT THIS TIME. NO S/S OF ACUTE DISTRESS NOTED, IV PATENT AND INTACT, FLUIDS INFUSING WELL, CALL LIGHT WITHIN REACH, SAFETY MEASURE ENSURED, WILL CONTINUE TO MONITOR
[2016-11-21 20:00] VITALS: BP 144/81
[2016-11-22] VITALS (7 sets, daily range): BP systolic 136–147; BP diastolic 77–84
[2016-11-22] MEDS: AMPICILLIN/SULBACTAM 3 GM in NACL 0.9% 100 ML IV SCH ×4 (00:26→17:03)
[2016-11-22] MEDS ORDERED: AMPICILLIN/SULBACTAM 3 GM VIAL ONE (00:26)
[2016-11-22] MEDS: MORPHINE SULFATE 2 MG/ML SYR IVP PRN ×5 (00:28→23:18)
--- NOTE | 2016-11-22 00:28 | NUR ---
PATIENT REPORTED PAIN 8/10, MEDICATED ORDERED, NO S/S OF ACUTE DISTRESS NOTED, CALL LIGHT WITHIN REACH, WILL CONTINUE TO MONITOR.
[2016-11-22] MEDS: NACL 0.9% 1,000 ML IV SCH ×6 (00:58→17:07)
--- NOTE | 2016-11-22 03:30 | NUR ---
PATIENT ASLEEP IN BED, RESPIRATION EVEN AND UNLABORED, CALL LIGHT WITHIN REACH, SAFETY MEASURE ENSURED, WILL CONTINUE TO MONITOR
[2016-11-22] MEDS: LORazepam 1 MG TAB PO SCH ×3 (05:00→20:19)
--- NOTE | 2016-11-22 05:43 | NUR ---
PATIENT REPORTED PAIN 8/10, MEDICATED ORDERED, CALL LIGHT WITHIN REACH, SAFETY MEASURE ENSURED, WILL CONTINUE TO MONITOR.
[2016-11-22 06:15] LABS: BASOPHILS # (AUTO) 0.2 K/uL (0.00-0.22); EOSINOPHILS # (AUTO) 0.2 K/uL (0-0.4); EOSINOPHILS % (AUTO) 2.1 % (0.0-4.0); HEMATOCRIT 47.2 % (36-52); HEMOGLOBIN 15.2 g/dL (12.0-18.0); LYMPHOCYTES # (AUTO) 1.6 K/uL (2.0-11.5); LYMPHOCYTES % (AUTO) 19.8 % (20.5-51.1); MEAN CORPUSCULAR HEMOGLOBIN 28 pg (27-31); MEAN CORPUSCULAR HGB CONC 32 g/dL (33-37); MEAN CORPUSCULAR VOLUME 88 fL (80-94); MONOCYTES # (AUTO) 0.5 K/uL (0.8-1.0); MONOCYTES % (AUTO) 6.7 % (1.7-9.3); NEUTROPHILS # (AUTO) 5.5 K/uL (1.8-7.7); NEUTROPHILS % (AUTO) 69.4 % (42.2-75.2); PLATELET COUNT (AUTO) 163 K/uL (140-450); RED CELL DISTRIBUTION WIDTH 14.3 % (11.6-13.7)
[2016-11-22 07:08] LABS: ALBUMIN 3.2 g/dL (3.4-5.0); ANION GAP 13.7 (8-16); CALCIUM 8.5 mg/dL (8.5-10.1); CREATININE 0.5 mg/dL (0.6-1.3); POTASSIUM 3.7 mmol/L (3.5-5.1); TOTAL BILIRUBIN 1.9 mg/dL (0.0-1.0); TOTAL PROTEIN, SERUM 6.9 g/dL (6.4-8.2)
[2016-11-22 07:27] LABS: INR 1.1 (0.8-1.2)
--- NOTE | 2016-11-22 07:30 | NUR ---
ENDORSED PLAN OF CARE TO DAY RN, PATIENT IN STABLE CONDITION
--- NOTE | 2016-11-22 07:30 | NUR ---
RECEIVED PT IN BED. AWAKE. ALERT ORIENTEDX4. NO SOB NOTED. DENIES ANY PAIN OR DISCOMFORT AT THIS TIME. POSITIVE BOWEL SOUNDS NOTED ON FOUR QUADRANTS. PT AMBULATORY. SAFETY PRECAUTION IN PLACE. CALL LIGHT WITHIN REACH. OFFERED URINAL NEEDED. DENIES ANY PAIN OR DISCOMFORT WITH BLADDER OR BOWEL ELIMINATION AT THIS TIME.
--- NOTE | 2016-11-22 09:01 | NUR ---
CM NOTE CONCURRENT REVIEW FAXED TO [facility] [phone] CHYNA YE PH [phone] TRACKING# [id number]
[2016-11-22] MEDS: PANTOPRAZOLE 40 MG TABEC PO SCH (09:12)
[2016-11-22] MEDS: POTASSIUM CHLORIDE 10 MEQ TABER PO SCH ×2 (09:12→20:19)
[2016-11-22] MEDS: ATORVASTATIN 20 MG TAB PO SCH (09:13)
[2016-11-22] MEDS: METOPROLOL 25 MG TAB PO SCH ×2 (09:13→20:20)
[2016-11-22] MEDS: LISINOPRIL 10 MG TAB PO SCH ×2 (09:13→20:21)
[2016-11-22] MEDS: MAGNESIUM OXIDE 400 MG TAB PO SCH (09:13)
--- NOTE | 2016-11-22 12:39 | NUR ---
MIGUEL FROM THE RADIOLOGY DEPT CAME TO TRANSITION LEAD PT FOR THE CT NEEDLE BIOPSY. UNHOOKED PT FROM IV. TICKET TO RIDE PROVIDED. NO SOB NOTED. DENIES ANY PAIN OR DISCOMFORT AT THIS TIME PT ALERT ORIENTED X4.
--- NOTE | 2016-11-22 13:12 | NUR ---
11/22/16 RD INITIAL ASSESSMENT COMPLETED PLEASE REFER TO NUTRITION ASSESSMENT UNDER CARE ACTIVITY FOR ESTIMATED NUTRITIONAL NEEDS. 1. WHEN MEDICALLY FEASIBLE, INITIATE PO DIET TO START ON CLEAR LIQUID DIET AND ADVANCE TOLERATED TO REGULAR DIET 2. RD TO FOLLOW-UP 2-3 DAYS; HIGH RISK PHILIP CURIEL, HELGA
--- NOTE | 2016-11-22 13:35 | NUR ---
MIGUEL BROUGHT BACK PT FROM RADIOLOGY DEPT FOR CT NEEDLE BIOPSY. ACCORDING TO HER THEY TRIED TO DO THE PROCEDURE BUT WHERE NOT ABLE TO, AND SHE ALREADY LET DR. MARIO KNOW ABOUT IT. PT ON STABLE CONDITION NO NOB NOTED. DENIES ANY PAIN OR DISCOMFORT AT THIS TIME. OFFERED CLEAR LIQUID FOOD A TOLERATED PER MD ORDER. PT TOLERATED WELL. VITAL SIGNS TAKEN AND RECORDED.
--- NOTE | 2016-11-22 14:00 | NUR ---
PT TOLERATED WELL HIS CLEAR LIQUID DIET. CONSUMED 100% OF HIS LATE LUNCH. DR. MARIO MADE AWARE. AND PT REQUESTED TO ADVANCE HIS DIET TO REGULAR. MD ORDER MADE AND CARRIED OUT.
--- NOTE | 2016-11-22 18:57 | NUR ---
PT CONSUMED 100% OF HIS DINNER. NO SOB NOTED. DENIES ANY PAIN OR DISCOMFORT AT THIS TIME. PT VERBALIZED HE WAS SATISFIED WITH THE DINNER.
--- NOTE | 2016-11-22 19:28 | NUR ---
PT KEPT CLEAN, DRY AND COMFORTABLE, NEEDS ATTENDED. ENDORSED TO NEXT SHIFT FOR CONTINUITY OF CARE. PT ON STABLE CONDITION.
--- NOTE | 2016-11-22 19:30 | NUR ---
RECEIVED REPORT FROM DELBERT MAURICE AT BEDSIDE. PT IS ALERT, AWAKE ORIENTED X4. INITIAL ASSESSMENT DONE. NO S/S OF RESPIRATORY DISTRESS OR SOB NOTED. C/O ABDOMINAL PAIN SCALING 9/10. GIVEN PRN MEDICATION FOR ABDOMINAL PAIN ORDERED. PLAN OF CARE REVIEWED TO PT AND VERBALIZED UNDERSTANDING. CALL LIGHT WITHIN REACH. WILL CONTINUE TO MONITOR.
[2016-11-23] VITALS: BP 121/76
[2016-11-23] MEDS: NACL 0.9% 1,000 ML IV SCH ×2 (00:11→04:33)
[2016-11-23] MEDS: AMPICILLIN/SULBACTAM 3 GM in NACL 0.9% 100 ML IV SCH ×3 (00:11→12:15)
--- NOTE | 2016-11-23 01:10 | NUR ---
PT IS SLEEPING RIGHT NOW BUT EASILY AROUSABLE. NO S/S OF ANY DISCOMFORT AT THIS TIME. ALL NEEDS ARE ATTENDED. CALL LIGHT WITHIN REACH. WILL CONTINUE TO MONITOR.
[2016-11-23] MEDS: HYDROcodone/APAP 7.5/325 MG 1 TAB PO PRN ×2 (03:20→09:12)
[2016-11-23 04:00] VITALS: BP 123/72
[2016-11-23] MEDS: LORazepam 1 MG TAB PO SCH ×2 (04:32→12:15)
--- NOTE | 2016-11-23 05:00 | NUR ---
AM CARE RENDERED. BED LINEN CHANGED. INSTRUCTED PT TO REPOSITION. KEPT CLEAN AND DRY. CALL LIGHT WITHIN REACH. WILL CONTINUE TO MONITOR.
[2016-11-23 06:10] LABS: BASOPHILS # (AUTO) 0.2 K/uL (0.00-0.22); BASOPHILS % (AUTO) 3.1 % (0.0-2.0); EOSINOPHILS # (AUTO) 0.3 K/uL (0-0.4); EOSINOPHILS % (AUTO) 3.2 % (0.0-4.0); HEMATOCRIT 43.4 % (36-52); HEMOGLOBIN 14.4 g/dL (12.0-18.0); LYMPHOCYTES # (AUTO) 1.3 K/uL (2.0-11.5); LYMPHOCYTES % (AUTO) 16.1 % (20.5-51.1); MEAN CORPUSCULAR HEMOGLOBIN 29 pg (27-31); MEAN CORPUSCULAR HGB CONC 33 g/dL (33-37); MEAN CORPUSCULAR VOLUME 87 fL (80-94); MONOCYTES # (AUTO) 0.6 K/uL (0.8-1.0); MONOCYTES % (AUTO) 7.3 % (1.7-9.3); NEUTROPHILS # (AUTO) 5.4 K/uL (1.8-7.7); NEUTROPHILS % (AUTO) 70.3 % (42.2-75.2); PLATELET COUNT (AUTO) 150 K/uL (140-450); RED CELL DISTRIBUTION WIDTH 14.2 % (11.6-13.7); WHITE BLOOD COUNT (AUTO) 7.8 K/uL (4.8-10.8)
[2016-11-23 06:34] LABS: MAGNESIUM 1.7 mg/dL (1.8-2.4); PHOSPHORUS 4.2 mg/dL (2.5-4.9)
[2016-11-23 06:36] LABS: ANION GAP 13.5 (8-16); CALCIUM 8.5 mg/dL (8.5-10.1); CARBON DIOXIDE 25.8 mmol/L (21-32); CREATININE 0.5 mg/dL (0.6-1.3); POTASSIUM 3.3 mmol/L (3.5-5.1)
--- NOTE | 2016-11-23 07:22 | NUR ---
RECEIVED PT IN BED AWAKE, ALERT ORIENTED X4. NO SOB NOTED. DENIES ANY PAIN OR DISCOMFORT AT THIS TIME. POSITIVE BOWEL SOUNDS NOTED ON FOUR QUADRANTS. PT AMBULATORY TO THE BATHROOM. DENIES ANY PROBLEM WITH BOWEL OR BLADDER ELIMINATION AT THIS TIME. SAFETY PRECAUTION IN PLACE. CALL LIGHT WITHIN REACH.
--- NOTE | 2016-11-23 07:25 | NUR ---
PT HAS NO S/S OF ANY DISCOMFORT. PLAN OF CARE ENDORSE TO DELBERT MAURICE AT BEDSIDE FOR CONTINUITY OF CARE.
[2016-11-23 08:00] VITALS: BP 138/79
[2016-11-23] MEDS: LISINOPRIL 10 MG TAB PO SCH (09:11)
[2016-11-23] MEDS: METOPROLOL 25 MG TAB PO SCH (09:11)
[2016-11-23] MEDS: ATORVASTATIN 20 MG TAB PO SCH (09:11)
[2016-11-23] MEDS: PANTOPRAZOLE 40 MG TABEC PO SCH (09:11)
[2016-11-23] MEDS: POTASSIUM CHLORIDE 10 MEQ TABER PO SCH (09:12)
[2016-11-23] MEDS: MAGNESIUM OXIDE 400 MG TAB PO SCH (09:12)
--- NOTE | 2016-11-23 09:19 | NUR ---
CM NOTE CONCURRENT REVIEW FAXED TO [facility] [phone] CHYNA YE PH [phone] XAVI MONROY [phone] TRACKING# [id number]
[2016-11-23] MEDS ORDERED: ARTIFICIAL TEARS OPHTH OINT 3.5 GM TUBE OP PRN (10:10)
[2016-11-23] MEDS ORDERED: LISI10TA11 PO (10:25)
[2016-11-23] MEDS ORDERED: LOVA20TA8 PO (10:25)
[2016-11-23] MEDS ORDERED: FAMO-90 PO (10:26)
[2016-11-23] MEDS ORDERED: METO25TA PO (10:30)
[2016-11-23] MEDS ORDERED: IBUP-2213 PO (10:30)
--- NOTE | 2016-11-23 11:03 | NUR ---
LEXI ARTHUR SISTER OF PT CALLED AND MADE AWARE OF PT DISCHARGE SINCE ACCORDING TO PT NO ONE WILL PICK HIM UP. ACCORDING TO SISTER THEIR HOUSE IS LOCK AND NO ONE WILL BE AT HOME UNTIL 3PM SO IF OK TO DISCHARGE PT AT 3PM SO SOMEONE CAN OPEN THE DOOR FOR HIM. LEXI ARTHUR NUMBER [phone].
--- NOTE | 2016-11-23 11:36 | NUR ---
Social Service Note: I met with patient at bedside. Patient speaks Lao and [place]. He stated he prefers to speak [place]. Per patient, he is in the process of moving to [place], [facility] [place] [facility] [place]. He reported he is planning to go to his new home (between [facility] [place] [facility], [place], in [facility]) post discharge. He stated he does not know his new address. He reported none of his family members may pick him up from hospital and take him to his new home. He requested a bus pass, I informed patient's nurse Ale of this.
[2016-11-23] MEDS ORDERED: HYDR-4446 PO (11:51)
[2016-11-23 12:00] VITALS: BP 133/80
[2016-11-23] MEDS ORDERED: MAGNESIUM OXIDE 400 MG TAB PO SCH (12:00)
--- NOTE | 2016-11-23 12:35 | NUR ---
PER PT, HIS FRIEND WILL PICK HIM UP AFTER HIS IV ANTIBIOTIC IS FINISHED AND DISCHARGE PAPERS ARE SIGNED. AND HE DOESN'T NEED THE BUS PASS ANYMORE. AND HE HAS A REID FOR THEIR HOUSE.
--- NOTE | 2016-11-23 13:50 | NUR ---
DISCHARGE INSTRUCTIONS AND HEALTH TEACHINGS GIVEN TO PT. PT VERBALIZED UNDERSTANDING. PT SIGNED DISCHARGE PAPERS. SISTER IN LAW CAME TO NUCLEAR REACTOR TECHNICIAN PT. ARMBAND REMOVED. IV CANNULA REMOVED AND INTACT. TELEBOX REMOVED. VITAL SIGNS TAKEN AND RECORDED. PT ON STABLE CONDITION. NO SOB. DENIES ANY PAIN OR DISCOMFORT AT THIS TIME.
--- NOTE | 2016-11-23 13:55 | NUR ---
PT WHEELED OUT TO THE HOSPITAL PARKING LOT. NO SOB NOTED. DENIES ANY PAIN OR DISCOMFORT AT THIS TIME. SISTER IN LAW PICKED UP PT ON THEIR PRIVATE OWNED VEHICLE. PT WENT HOME ON STABLE CONDITION.
--- NOTE | 2016-11-23 13:56 | NUR ---
FAXED H AND P, LABS, IMAGING, CONSULTATION, AND NOTES. TO [facility] [phone] PER MD ORDER BY BRIDGES AND BUILDINGS SUPERVISOR. CONFIRMATION RECEIVED.
--- NOTE | 2016-11-24 14:38 | NUR ---
CALLED [facility] AND SPOKE WITH XAVI MONROY AND INFORMED HER THAT PATIENT WAS DISCHARGED ON 11/23/16 PHONE [phone].
== END 2016-11-23 13:55 | disposition home or self-care (01) | DRG 720 ==
LOC: MED 12:45 → MTU 14:54 → MIC 17:34 → MTU 22:25
PROVIDERS: ADMIT Family Medicine; ATTEND Family Medicine
DX: A41.9 Sepsis, unspecified organism (principal); N17.0 Acute kidney failure with tubular necrosis; K85.20 Alcohol induced acute pancreatitis without necrosis or infection; J84.10 Pulmonary fibrosis, unspecified; K86.89 Other specified diseases of pancreas; E83.42 Hypomagnesemia; K86.3 Pseudocyst of pancreas; I10 Essential (primary) hypertension; E87.6 Hypokalemia; Y90.9 Presence of alcohol in blood, level not specified; F10.20 Alcohol dependence, uncomplicated; F12.10 Cannabis abuse, uncomplicated; Z79.899 Other long term (current) drug therapy; Z91.14 Patient's other noncompliance with medication regimen; Z71.51 Drug abuse counseling and surveillance of drug abuser
CPT/HCPCS: 36415; 71010; 74150; 80048; 80053; 80305; 81001; 82150; 83036; 83605; 83615; 83690; 83735; 83880; 84100; 84439; 84443; 85025; 85610; 85730; 87040; 87081; 96361; 96365; 96375; 96376; 99285; G0482; J0295; J0360; J2001; J2270; J2405; J3475; J3480; J3490; J7030; Q0092

== ENCOUNTER 2016-12-07 20:35 | Inpatient (IN) | payer OTHER ==
[~2016-12-07] VITALS: Ht 180.3 cm; Wt 65.8 kg
[~2016-12-07 20:35] MED LIST changes: -ACET-2858 PO; -ATOR20TA PO; +FAMO-90 PO; +HYDR-4446 PO; +IBUP-2213 PO; +LOVA20TA8 PO; -MAGN400T7 PO; -OMEP20TC24 PO; -ONDA4TAB PO; -POTA10TA10 PO
[2016-12-07 20:47] VITALS: BP 187/110
--- NOTE | 2016-12-07 21:07 | NUR ---
PHLEB DRAWING LABS
[2016-12-07 21:23] LABS: HEMOGLOBIN 15.7 g/dL (12.0-18.0); MEAN CORPUSCULAR HEMOGLOBIN 28 pg (27-31); MEAN CORPUSCULAR HGB CONC 33 g/dL (33-37); MEAN CORPUSCULAR VOLUME 86 fL (80-94); PLATELET COUNT (AUTO) 231 K/uL (140-450); RED BLOOD CELL COUNT(AUTO) 5.56 MIL/uL (4.20-6.10); RED CELL DISTRIBUTION WIDTH 14.2 % (11.6-13.7); WHITE BLOOD COUNT (AUTO) 17.8 K/uL (4.8-10.8)
[2016-12-07 21:25] LABS: BAND % (MANUAL) 2 % (0-8); EOSINOPHILS % (MANUAL) 2 % (0-4); METAMYELOCYTES % 2 % (0-0); MONOCYTES % (MANUAL) 4 % (5-12); MYELOCYTES % 3 % (0-0); NEUTROPHILS % (MANUAL) 76 (43-65)
[2016-12-07 21:26] LABS: LYMPHOCYTES % (MANUAL) 11 % (20-46); PLATELET ESTIMATE ADEQUATE
[2016-12-07 21:33] LABS: ANION GAP 15.3 (8-16); CALCIUM 8.5 mg/dL (8.5-10.1); CARBON DIOXIDE 26.9 mmol/L (21-32); CREATININE 0.6 mg/dL (0.7-1.3); POTASSIUM 3.2 mmol/L (3.5-5.1)
[2016-12-07 21:39] LABS: ALBUMIN 4.1 g/dL (3.4-5.0); TOTAL BILIRUBIN 0.7 mg/dL (0.0-1.0); TOTAL PROTEIN, SERUM 8.2 g/dL (6.4-8.2)
[2016-12-07 21:45] LABS: INR 1.1 (0.8-1.2); PARTIAL THROMBOPLASTIN TIME 28.4 secs (22-35.6); PROTHROMBIN TIME 11.5 secs (10.8-13.4)
--- NOTE | 2016-12-07 22:07 | NUR ---
PT TAKEN TO BED 7
--- NOTE | 2016-12-07 22:15 | NUR ---
56Y M BIB SELF C/O RUQ PAIN X 2 HOURS, PAIN 10/10 WITH VOMITING. PT DENIES ANY SOB/CP AT THE MOMENT. PT IS AAOX4. PT DENIES ANY MEDICAL HX AND NKA.
--- NOTE | 2016-12-07 22:20 | NUR ---
PT BP IS 194/[address] ALMONTE HAS BEEN INFORMED AND AWARE.
[2016-12-07] MEDS ORDERED: MORPHINE SULFATE 4 MG/ML SYR IVP ONE ×2 (22:35→23:10)
[2016-12-07] MEDS ORDERED: NACL 0.9% 1,000 ML IV ONE (22:35)
--- NOTE | 2016-12-07 23:05 | NUR ---
Dr. Ho evaluating patient at bedside.
[2016-12-07] MEDS ORDERED: ONDANSETRON 4 MG/2 ML VIAL IVP ONE (23:10)
[2016-12-07] MEDS: NACL 0.9% 1,000 ML IV SCH (23:21)
[2016-12-07] MEDS ORDERED: DOCUSATE SODIUM 100 MG GELCAP PO PRN (23:25)
[2016-12-07] MEDS ORDERED: HYDROcodone/APAP 7.5/325 MG 1 TAB PO PRN (23:25)
[2016-12-07] MEDS ORDERED: ONDANSETRON 4 MG/2 ML VIAL IM/IVP PRN (23:25)
[2016-12-07] MEDS ORDERED: MORPHINE SULFATE 2 MG/ML SYR IVP PRN (23:25)
[2016-12-07] MEDS ORDERED: ACETAMINOPHEN 325 MG TAB PO PRN (23:25)
[2016-12-07] MEDS ORDERED: cefTRIAXone 1,000 MG VIAL ONE (23:26)
--- NOTE | 2016-12-07 23:29 | NUR ---
PER DR ALMONTE, PT OKAY TO ADMIT TO FLOOR WITH BP 193/98.
--- NOTE | 2016-12-07 23:37 | NUR ---
Patient will be admitted to care of DR ROMERO . Admited to TELE 106B. Will go to room 106B. Belongings list completed. Report to SANGEETA MAURICE .
--- NOTE | 2016-12-07 23:41 | NUR ---
X-Ray at bedside.
--- NOTE | 2016-12-07 23:46 | NUR ---
Patient will be admitted to care of DR ROMERO. Admited to TELE. Will go to room 106B. Belongings list completed. Report to
[2016-12-08 00:10] VITALS: BP 188/94
--- NOTE | 2016-12-08 00:10 | NUR ---
PT CAME TO THE UNIT VIA GURNEY. AMBULATED TO THE BED. NO S/S OF DISTRESS. AOX4. COMPLAINTS OF ABDOMINAL PAIN. WITH AN IV AT THE RIGHT AC 18 G. SKIN INTACT. ORIENTED PATIENT TO THE UNIT, ROOM, AND CALL LIGHT. DISCUSSED PLAN OF CARE WITH PATIENT. CALL LIGHT WITHIN REACH. WILL CONTINUE TO MONITOR FOR ANY CHANGES.
[2016-12-08] MEDS ORDERED: LORazepam 1 MG TAB PO PRN ×2 (00:25)
--- NOTE | 2016-12-08 00:25 | NUR ---
TALKED TO DR BYERS IN REGARDS TO PT'S PAIN, MORPHINE GIVEN IN THE ED AT 2328. PT STILL COMPLAINING OF PAIN OF 03/13. NOTED BY DR. BYERS. STATED HE WILL PUT IN ORDERS OF DILAUDID.
[2016-12-08 00:36] LABS: AMYLASE 149 U/L (25-115); CHOL/HDL RATIO 5.4 (1-4.5); CHOLESTEROL 234 mg/dL (<200); CREATINE KINASE, TOTAL 85 U/L (39-308); FREE T4 (FREE THYROXINE) 1.27 ng/dL (0.76-1.46); HDL CHOLESTEROL 43 mg/dL (40-60); LDL (CALC) 162 mg/dL (60-100); MAGNESIUM 1.8 mg/dL (1.8-2.4); THYROID STIMULATING HORMONE 1.66 uIU/mL (0.34-3.74); TRIGLYCERIDES 149 mg/dL (30-150)
[2016-12-08 01:00] LABS: ALCOHOL, BLOOD < 3 mg/dL (<3); LACTATE DEHYDROGENASE 160 U/L (85-227)
[2016-12-08] MEDS ORDERED: HYDROmorphone 1 MG/ML AMP ONE (01:00)
[2016-12-08] MEDS ORDERED: ENALAPRILAT 2.5 MG/2 ML VIAL IVP PRN (01:55)
[2016-12-08] MEDS ORDERED: KCL 20 MEQ/WATER INJ PREMIX 100 ML IV SCH (02:00)
--- NOTE | 2016-12-08 02:00 | NUR ---
ADMINISTERED K MARIA ELENA PER MD ORDER. NOTED PT'S BLOOD PRESSURE OF 176/90. DR BYERS AWARE. STATED HE PUT IN ORDERS OF PRN VASOTEC IF NEEDED.
[2016-12-08 02:19] LABS: AMPHETAMINE, URINE NEG. ng/ml (NEG <=1000); BARBITURATE, URINE NEG. ng/ml (NEG <=200); BENZODIAZEPINE, URINE NEG. ng/mL (NEG <=200); CANNABINOID, URINE POS. ng/mL (NEG <=50); COCAINE, URINE NEG. ng/mL (NEG <=300); OPIATE, URINE POS. ng/mL (NEG <=2000); PHENCYCLIDINE SCREEN,URINE NEG. ng/mL (NEG <=25)
[2016-12-08 02:24] LABS: APPEARANCE,URINE CLEAR (CLEAR); BILIRUBIN,URINE NEGATIVE (NEGATIVE); BLOOD, URINE TRACE-I (NEGATIVE); COLOR,URINE YELLOW (YELLOW); LEUKOCYTE ESTERASE ,URINE NEGATIVE (NEGATIVE); NITRITE, URINE NEGATIVE (NEGATIVE); PH,URINE 7.5 (5.0-9.0); PROTEIN,URINE NEGATIVE (NEGATIVE); UGLUCOSE 1+ (NEGATIVE); UROBILINOGEN,URINE 0.2 EU/dL (0.2 - 1)
[2016-12-08 03:17] LABS: BACTERIA,URINE None Seen /HPF (None Seen); RBC,URINE 0-5 (RARE) /HPF (0-5); SQUAMOUS EPITHELIAL CELL,UR 0-3 (FEW) /LPF (0-3 (FEW)); WBC,URINE NONE SEEN /HPF (0-5)
[2016-12-08 04:00] VITALS: BP 159/92
--- NOTE | 2016-12-08 04:00 | NUR ---
VITAL SIGNS STABLE. WILL CONTINUE TO MONITOR. NO S/S OF DISTRESS. CALL LIGHT WITHIN REACH
[2016-12-08] MEDS: HYDROmorphone 1 MG/ML AMP IVP PRN ×4 (04:51→21:20)
[2016-12-08] MEDS: LORazepam 1 MG TAB PO SCH ×3 (05:34→20:57)
[2016-12-08 06:27] LABS: BASOPHILS # (AUTO) 0.6 K/uL (0.00-0.22); BASOPHILS % (AUTO) 4.4 % (0.0-2.0); EOSINOPHILS # (AUTO) 0.2 K/uL (0-0.4); EOSINOPHILS % (AUTO) 1.6 % (0.0-4.0); HEMATOCRIT 48.9 % (36-52); HEMOGLOBIN 16.2 g/dL (12.0-18.0); LYMPHOCYTES # (AUTO) 0.9 K/uL (2.0-11.5); LYMPHOCYTES % (AUTO) 6.2 % (20.5-51.1); MEAN CORPUSCULAR HEMOGLOBIN 29 pg (27-31); MEAN CORPUSCULAR HGB CONC 33 g/dL (33-37); MEAN CORPUSCULAR VOLUME 86 fL (80-94); MONOCYTES # (AUTO) 0.6 K/uL (0.8-1.0); MONOCYTES % (AUTO) 4.7 % (1.7-9.3); NEUTROPHILS # (AUTO) 11.5 K/uL (1.8-7.7); NEUTROPHILS % (AUTO) 83.1 % (42.2-75.2); PLATELET COUNT (AUTO) 220 K/uL (140-450); RED CELL DISTRIBUTION WIDTH 14.2 % (11.6-13.7); WHITE BLOOD COUNT (AUTO) 13.8 K/uL (4.8-10.8)
[2016-12-08 06:39] LABS: ANION GAP 13.2 (8-16); CALCIUM 8.4 mg/dL (8.5-10.1); CARBON DIOXIDE 26.5 mmol/L (21-32); CREATININE 0.5 mg/dL (0.7-1.3); POTASSIUM 3.7 mmol/L (3.5-5.1)
--- NOTE | 2016-12-08 07:22 | NUR ---
ENDORSED TO AM NURSE FOR CONTINUITY OF CARE. PT IN STABLE CONDITION. NO S/S OF DISTRESS.
--- NOTE | 2016-12-08 07:25 | NUR ---
RECEIVED REPORT FROM KAYLENE PALOMO. PT IS AOX4. COMPLAINTS OF ABDOMINAL PAIN. WITH AN IV AT THE RIGHT AC 18 G. SKIN INTACT. ORIENTED PATIENT TO THE UNIT, ROOM, AND CALL LIGHT. DISCUSSED PLAN OF CARE WITH PATIENT. CALL LIGHT WITHIN REACH. WILL CONTINUE TO MONITOR FOR ANY CHANGES.
[2016-12-08 08:00] VITALS: BP 161/96
[2016-12-08] MEDS: THIAMINE 100 MG TAB PO SCH (08:27)
[2016-12-08] MEDS: FAMOTIDINE 20 MG TAB PO SCH (08:27)
[2016-12-08] MEDS: LISINOPRIL 10 MG TAB PO SCH ×2 (08:27→20:58)
[2016-12-08] MEDS: FOLIC ACID 1 MG TAB PO SCH (08:27)
[2016-12-08] MEDS: MULTIVITAMIN 1 TAB PO SCH (08:27)
[2016-12-08] MEDS ORDERED: LOVASTATIN 20 MG PO SCH (09:00)
--- NOTE | 2016-12-08 09:20 | NUR ---
CHYNA NOTE INITIAL REVIEW FAXED TO ALBERTO MORSE [phone] PH [phone] [phone] Addendum: 12/08/16 at 1218 by Martine Arias CM ALBERTO MORAN PH (C) [phone] FAX [phone]
--- NOTE | 2016-12-08 09:39 | NUR ---
PATIENT HAS BEEN SCREENED AND CATEGORIZED MODERATE NUTRITION RISK. PATIENT WILL BE SEEN WITHIN 3-5 DAYS OF ADMISSION. 12/10/16-12/12/[address]
[2016-12-08] MEDS: HYDROcodone/APAP 7.5/325 MG 1 TAB PO PRN ×2 (10:02→17:28)
[2016-12-08] MEDS: NACL 0.9% 1,000 ML IV SCH ×3 (11:53→20:58)
[2016-12-08 12:00] VITALS: BP 120/83
[2016-12-08 16:00] VITALS: BP 127/72
--- NOTE | 2016-12-08 19:30 | NUR ---
PT ENDORSED TO KAYLENE MEDINA. FOR CONTINUITY OF CARE, PT STABLE AT THIS TIME.
--- NOTE | 2016-12-08 19:31 | NUR ---
RECEIVED REPORT FROM AM NURSE. PT RESTING IN BED, AOX4, ABLE TO VERBALIZE NEEDS. PT C/O ABD PAIN, SEE PAIN ASSESSMENT. WILL ADMINISTER PAIN MED ORDERED. PT DENIES N/V/D. MANAGER TRADE IN PLACE. BOTH IV ACCESS ASYMPTOMATIC PATENT AND INTACT. IVF INFUSING WELL ON IV LEFT FOREARM. DISCUSSED AND REVIEWED PLAN OF CARE WITH PT. PT INSTRUCTED TO REMAIN ON CLEAR LIQUID DIET AND TO USE CALL LIGHT FOR ASSISTANCE TO COLLECT STOOL SAMPLE. SAFETY MEASURES ENSURED. CALL LIGHT WITHIN REACH. WILL CONTINUE TO MONITOR.
[2016-12-08 20:00] VITALS: BP 119/70
[2016-12-08] MEDS ORDERED: traZODone 50 MG TAB PO SCH ×3 (20:00)
[2016-12-08] MEDS ORDERED: SIMVASTATIN 10 MG TAB PO SCH (21:00)
--- NOTE | 2016-12-08 21:00 | NUR ---
ADMINISTERED DUE MEDS WITH EDUCATION. PT VERBALIZED UNDERSTANDING, TOLERATED WELL. PT C/O PAIN. SEE PAIN ASSESSMENT. ADMINISTERED PAIN MEDICATION WITH EDUCATION. SAFETY MEASURES ENSURED. CALL LIGHT WITHIN REACH.
[2016-12-08] MEDS ORDERED: LISINOPRIL 20 MG TAB PO SCH (23:40)
[2016-12-09] VITALS: BP 112/65
--- NOTE | 2016-12-09 | NUR ---
PT SLEEPING. ALL NEEDS MET. IVF INFUSING WELL. CONDITION STABLE. SAFETY MEASURES ENSURED. CALL LIGHT WITHIN REACH.
[2016-12-09] MEDS: NACL 0.9% 1,000 ML IV SCH ×3 (00:58→14:18)
[2016-12-09] MEDS: HYDROmorphone 1 MG/ML AMP IVP PRN ×2 (03:30→06:33)
--- NOTE | 2016-12-09 03:30 | NUR ---
PT C/O ABD PAIN. SEE PAIN ASSESSMENT. ADMINISTERED PAIN MED ORDERED. SAFETY MEASURES ENSURED. CALL LIGHT WITHIN REACH.
[2016-12-09 04:00] VITALS: BP 123/71
[2016-12-09] MEDS: LORazepam 1 MG TAB PO SCH ×2 (04:56→13:32)
[2016-12-09 06:29] LABS: BASOPHILS # (AUTO) 0.1 K/uL (0.00-0.22); BASOPHILS % (AUTO) 1.5 % (0.0-2.0); EOSINOPHILS # (AUTO) 0.3 K/uL (0-0.4); EOSINOPHILS % (AUTO) 3.1 % (0.0-4.0); HEMOGLOBIN 13.9 g/dL (12.0-18.0); LYMPHOCYTES # (AUTO) 1.2 K/uL (2.0-11.5); LYMPHOCYTES % (AUTO) 14.8 % (20.5-51.1); MEAN CORPUSCULAR HEMOGLOBIN 29 pg (27-31); MEAN CORPUSCULAR HGB CONC 33 g/dL (33-37); MEAN CORPUSCULAR VOLUME 87 fL (80-94); MONOCYTES # (AUTO) 0.5 K/uL (0.8-1.0); MONOCYTES % (AUTO) 6.5 % (1.7-9.3); NEUTROPHILS # (AUTO) 6.1 K/uL (1.8-7.7); NEUTROPHILS % (AUTO) 74.1 % (42.2-75.2); PLATELET COUNT (AUTO) 164 K/uL (140-450); RED BLOOD CELL COUNT(AUTO) 4.81 MIL/uL (4.20-6.10); RED CELL DISTRIBUTION WIDTH 14.2 % (11.6-13.7); WHITE BLOOD COUNT (AUTO) 8.2 K/uL (4.8-10.8)
[2016-12-09] MEDS ORDERED: traZODone 50 MG TAB PO SCH (07:00)
[2016-12-09 07:23] LABS: ANION GAP 12.2 (8-16); CALCIUM 7.8 mg/dL (8.5-10.1); CARBON DIOXIDE 26.2 mmol/L (21-32); CREATININE 0.6 mg/dL (0.7-1.3); POTASSIUM 3.4 mmol/L (3.5-5.1)
[2016-12-09 07:26] LABS: MAGNESIUM 1.7 mg/dL (1.8-2.4); PHOSPHORUS 4.2 mg/dL (2.5-4.9)
--- NOTE | 2016-12-09 07:32 | NUR ---
RECEIVED PT REPORT AT BEDSIDE FROM NIGHT NURSE. PT IS AAOX4 AND SHOWS NO S/S OF DISTRESS ON ROOM AIR. PT STATES PAIN 7/10. PT IS AWARE HE WAS GIVEN DILAUDID 0.5 MG IVP AT 0630. WILL ADMINISTER NORCO 7.5/325 MG PO. PT IS AWARE OF HIS FREQUENCY FOR PRN PAIN MEDICATIONS. PT SKIN IS INTACT. NOTED IV ON THE L FA WITH IVF'S INFUSING WELL. PT VERBALIZED UNDERSTANDING OF POC FOR TODAY. PT WAS EDUCATED ON USING THE CALL LIGHT IF HE NEEDED TO GET OOB TO USE THE RESTROOM. PT IS LAYING IN BED NOW WITH THE BED LOWERED AND CALL LIGHT WITHIN REACH. PT ON TELE MONITORING WELL.
--- NOTE | 2016-12-09 07:32 | NUR ---
CONDITION STABLE. ENDORSED PLAN OF CARE TO AM NURSE.
[2016-12-09 08:00] VITALS: BP 113/67
--- NOTE | 2016-12-09 08:50 | NUR ---
PAGED DR. ARGUELLES FOR MAGNESIUM OF 1.7 AND POTASSIUM OF 3.4. WILL AWAIT FOR CALLBACK.
[2016-12-09] MEDS: FAMOTIDINE 20 MG TAB PO SCH (08:55)
[2016-12-09] MEDS: MULTIVITAMIN 1 TAB PO SCH (08:56)
[2016-12-09] MEDS: LISINOPRIL 10 MG TAB PO SCH (08:56)
[2016-12-09] MEDS: THIAMINE 100 MG TAB PO SCH (08:56)
[2016-12-09] MEDS: FOLIC ACID 1 MG TAB PO SCH (08:57)
--- NOTE | 2016-12-09 09:00 | NUR ---
ADMINISTERED SCHEDULED MEDICATIONS. PT TOLERATED ACTIVITY WELL. PT STATED HE ATE HIS BREAKFAST AND TOLERATED REGULAR DIET WELL. PT DENIES N/V. PT WAS GIVEN NORCO 7.5/325 MG PO FOR PAIN OF 7/10 SHARP ABD PAIN. PT ASKED FOR FREQUENCY OF MEDICATION. PT IS AWARE NORCO 7.5/325 MG PO IS PRN Q6H. WILL CONTINUE TO MONITOR.
[2016-12-09 09:13] LABS: T4 (THYROXINE) 7.1 ug/dL (4.5-12.0)
[2016-12-09] MEDS: HYDROcodone/APAP 7.5/325 MG 1 TAB PO PRN (09:28)
--- NOTE | 2016-12-09 09:30 | NUR ---
HAVE NOT RECEIVED CALL BACK FROM DR ARGUELLES. PAGED AGAIN REGARDING PT LAB VALUES OF MAGNESIUM 1.7 AND POTASSIUM OF 3.4.
--- NOTE | 2016-12-09 10:16 | NUR ---
PT IS IN ROOM SLEEPING AND SHOWS NO S/S OF DISTRESS ON ROOM AIR.
[2016-12-09] MEDS ORDERED: LISI-420 PO (11:28)
[2016-12-09] MEDS ORDERED: LOVASTATIN PO (11:28)
[2016-12-09] MEDS ORDERED: MAG400 GT (11:28)
[2016-12-09] MEDS ORDERED: ATOR10TA PO (11:30)
[2016-12-09] MEDS ORDERED: OSC500 PO (11:32)
[2016-12-09 12:00] VITALS: BP 110/66
[2016-12-09] MEDS ORDERED: MAG400 PO (12:00)
--- NOTE | 2016-12-09 12:30 | NUR ---
PT IS TOLERATING LUNCH REGULAR DIET. PT DENIES PAIN AND SOB. WILL CONTINUE TO MONITOR.
[2016-12-09] MEDS ORDERED: POTA10TA10 PO (12:51)
--- NOTE | 2016-12-09 13:45 | NUR ---
PT WAS GIVEN DISCHARGE INSTRUCTIONS AND PRESCRIPTIONS. ALL PAPERWORK WAS SIGNED. ALL QUESTIONS ANSWERED. ALL BELONGINGS AND PRESCRIPTIONS IN PT POSSESSION. IV WAS DISCONTINUED WITH CANNULA INTACT. WRISTBANDS AND TELE MONITOR REMOVED. [facility] [employer] WAS NOTIFIED TO GET BUS PASS FOR PT. PT IS WAITING TO BE DISCHARGED. PT VERBALIZED UNDERSTANDING OF DISCHARGE PAPERWORK AND CONTINUATION OF CARE WITH PCP.
--- NOTE | 2016-12-09 14:30 | NUR ---
PT WAS DISCHARGED. ALL PAPERWORK SIGNED AND IN CHART. PT REFUSED WHEELCHAIR. PT HAS TWO BUS TICKETS IN HAND. PT STATED HE KNOWS HOW TO GET TO HIS DESTINATION. PT AMB OFF UNIT WITH A STABLE GAIT. PT LEFT UNIT IN STABLE CONDITION.
[2016-12-11 12:35] LABS: HEMOGLOBIN A1C 6.3 % (4.8-5.6)
== END 2016-12-09 14:35 | disposition home or self-care (01) | DRG 282 ==
LOC: MED 20:35 → MTU 23:35
PROVIDERS: ADMIT Family Medicine; ATTEND Family Medicine
DX: K85.20 Alcohol induced acute pancreatitis without necrosis or infection (principal); E11.65 Type 2 diabetes mellitus with hyperglycemia; I16.0 Hypertensive urgency; E83.42 Hypomagnesemia; E87.6 Hypokalemia; E78.5 Hyperlipidemia, unspecified; F11.10 Opioid abuse, uncomplicated; F10.10 Alcohol abuse, uncomplicated; I10 Essential (primary) hypertension; F12.10 Cannabis abuse, uncomplicated; Y90.0 Blood alcohol level of less than 20 mg/100 ml; E87.1 Hypo-osmolality and hyponatremia; E83.51 Hypocalcemia; Z91.14 Patient's other noncompliance with medication regimen; Z79.899 Other long term (current) drug therapy
CPT/HCPCS: 36415; 71010; 80048; 80053; 80305; 81001; 82150; 82272; 82550; 83036; 83605; 83615; 83690; 83735; 83880; 84100; 84436; 84439; 84443; 84479; 84484; 85025; 85610; 85730; 87040; 87081; 93005; 96361; 96365; 96375; 99285; G0482; J0696; J1170; J2270; J2405; J3480; J7030; Q0092; Q9967

== ENCOUNTER 2019-08-27 18:44 | Emergency (ER) | payer SELFPAY ==
[~2019-08-27] VITALS: Ht 177.8 cm; Wt 70.3 kg
[~2019-08-27 18:44] MED LIST changes: +ATOR10TA PO; +DOCU-299 PO; -DOCU-67 PO; -HYDR-4446 PO; +LISI-420 PO; -LISI10TA11 PO; -LOVA20TA8 PO; +MAG400 PO; +OSC500 PO; +POTA10TE30 PO
--- NOTE | 2019-08-27 18:52 | NUR ---
AMBULATED TO BED 11 WITH STEADY GAIT
[2019-08-27 18:53] VITALS: BP 165/92
--- NOTE | 2019-08-27 18:54 | NUR ---
58 Y/O MALE C/O INCREASED BLOOD PRESSURE X MONTHS WORSENING TODAY. STATES HE TAKES MEDICATION FOR BP NIGHTLY. STATES HEADACHE AND DIZZINESS. DENIES BLURRED VISION/CHANGE IN VISION. 10/10 ACHING PAIN TO HEAD. DENIES N/V/D. RR EVEN AND UNLABORED. HOB ELEVATED. X 1 SIDE RAIL RAISED, BED LOCKED AND IN LOW POSITION. MEDHX: HTN, PANCREATITIS ALLERGIES: NKA
--- NOTE | 2019-08-27 19:10 | NUR ---
REPORT GIVEN TO KAYLENE CHAPPELL. TRANSFER OF CARE AT THIS TIME
--- NOTE | 2019-08-27 19:18 | NUR ---
RECEIVED REPORT FROM KAYLENE FRANCO AND [facility]
[2019-08-27] MEDS ORDERED: DEXAMETHASONE 4 MG/ML VIAL PO ONE (19:55)
[2019-08-27] MEDS ORDERED: LISINOPRIL 20 MG TAB PO ONE (19:55)
[2019-08-27] MEDS ORDERED: IBUPROFEN 600 MG TAB PO ONE (19:55)
[2019-08-27 20:09] LABS: BASOPHILS # (AUTO) 0.1 K/uL (0.00-0.22); EOSINOPHILS # (AUTO) 0.1 K/uL (0-0.4); HEMATOCRIT 47.5 % (36-52); HEMOGLOBIN 16.1 g/dL (12.0-18.0); LYMPHOCYTES # (AUTO) 1.2 K/uL (2.0-11.5); MEAN CORPUSCULAR HEMOGLOBIN 32 pg (27-31); MEAN CORPUSCULAR HGB CONC 34 g/dL (33-37); MEAN CORPUSCULAR VOLUME 93.1 fL (80-94); MONOCYTES # (AUTO) 0.4 K/uL (0.8-1.0); MONOCYTES % (AUTO) 6.1 % (1.7-9.3); NEUTROPHILS # (AUTO) 5.6 K/uL (1.8-7.7); NEUTROPHILS % (AUTO) 75.9 % (42.2-75.2); PLATELET COUNT (AUTO) 190 K/uL (140-450); RED CELL DISTRIBUTION WIDTH 13.6 % (11.6-13.7); WHITE BLOOD COUNT (AUTO) 7.4 K/uL (4.8-10.8)
[2019-08-27 20:21] LABS: ANION GAP 15.6 (8-16); CREATININE 0.6 mg/dL (0.6-1.3); POTASSIUM 3.6 mmol/L (3.5-5.1)
--- NOTE | 2019-08-27 21:00 | NUR ---
DECREASED BP AFTER ZESTRIL 157/88. NADR. PT REPORTS NO PAIN RELIEF, 10/10 PAIN.
--- NOTE | 2019-08-27 21:21 | NUR ---
dcPatient discharged with v/s stable. Written and verbal after care instructions given and explained. Patient alert, oriented and verbalized understanding of instructions. Ambulatory with steady gait. All questions addressed prior to discharge. ID band removed. Patient advised to follow up with PMD. Rx of motrin,decadron, lisonopril given. Patient educated on indication of medication including possible reaction and side effects. Opportunity to ask questions provided and answered.
[2019-08-27 21:22] VITALS: BP 156/80
== END 2019-08-27 21:21 | disposition home or self-care (01) ==
LOC: MED 18:44
DX: I10 Essential (primary) hypertension (principal); M79.604 Pain in right leg; Z79.899 Other long term (current) drug therapy
CPT/HCPCS: 36415; 80048; 85025; 99284; J1100

== ENCOUNTER 2021-05-10 19:26 | Inpatient (IN) | payer OTHER, SELFPAY ==
[~2021-05-10] VITALS: Ht 177.8 cm; Wt 64.9 kg
[~2021-05-10 19:26] MED LIST changes: -LISI-420 PO; +LISI20TA29 PO; -MAG400 PO; +MAGN400T61 PO; +POTA10TA70 PO; -POTA10TE30 PO
--- NOTE | 2021-05-10 20:21 | NUR ---
PT IN RESTROOM.
[2021-05-10 20:28] VITALS: BP 134/88
--- NOTE | 2021-05-10 20:38 | NUR ---
PT BACK IN LOBBY.
[2021-05-10] MEDS ORDERED: PANTOPRAZOLE 40 MG INJ VIAL IVP ONE (20:50)
[2021-05-10] MEDS ORDERED: NACL 0.9% 1,000 ML IV SCH (20:50)
--- NOTE | 2021-05-10 20:56 | NUR ---
PT ambulated with RAD staff to radiology for xrays.
--- NOTE | 2021-05-10 21:02 | NUR ---
pt brought back from RAD via w/c.
--- NOTE | 2021-05-10 21:17 | NUR ---
RAPID COVID SWAB COLLECTED. GIVEN TO YUVAL.
--- NOTE | 2021-05-10 21:18 | NUR ---
PT MOVED TO ER BED 1
[2021-05-10 21:24] LABS: BASOPHILS # (AUTO) 0.1 K/uL (0.00-0.22); BASOPHILS % (AUTO) 0.5 % (0.0-2.0); HEMATOCRIT 34.5 % (36-52); HEMOGLOBIN 11.5 g/dL (12.0-18.0); LYMPHOCYTES # (AUTO) 1.4 K/uL (2.0-11.5); LYMPHOCYTES % (AUTO) 9.8 % (20.5-51.1); MEAN CORPUSCULAR HEMOGLOBIN 29 pg (27-31); MEAN CORPUSCULAR HGB CONC 33 g/dL (33-37); MEAN CORPUSCULAR VOLUME 86.8 fL (80-94); MONOCYTES # (AUTO) 0.6 K/uL (0.8-1.0); MONOCYTES % (AUTO) 4.4 % (1.7-9.3); NEUTROPHILS # (AUTO) 11.9 K/uL (1.8-7.7); NEUTROPHILS % (AUTO) 85.3 % (42.2-75.2); PLATELET COUNT (AUTO) 405 K/uL (140-450); RED BLOOD CELL COUNT(AUTO) 3.98 MIL/uL (4.20-6.10); RED CELL DISTRIBUTION WIDTH 15.2 % (11.6-13.7)
[2021-05-10 21:39] LABS: ALBUMIN 3.4 g/dL (3.4-5.0); CARBON DIOXIDE 27.5 mmol/L (21-32); CREATININE 0.8 mg/dL (0.6-1.3); POTASSIUM 3.5 mmol/L (3.5-5.1); TOTAL BILIRUBIN 0.4 mg/dL (0.0-1.0)
--- NOTE | 2021-05-10 21:48 | NUR ---
PATIENT REPORTS NO OTHER COMPLAINTS AT THIS TIME. COAX4 WITH WEAKNESS
[2021-05-10 21:50] LABS: PROTHROMBIN TIME 10.2 secs (10.8-13.4)
--- NOTE | 2021-05-10 21:56 | NUR ---
SALVADOR OBTAINED AT THIS TIME. WALKED OVER TO LAB
[2021-05-10] MEDS ORDERED: PANTOPRAZOLE 80 MG in NACL 0.9% 100 ML IVP SCH (22:45)
[2021-05-10] MEDS ORDERED: MORPHINE SULFATE 4 MG/ML SYR IVP ONE (22:45)
[2021-05-10] MEDS ORDERED: ONDANSETRON 4 MG/2 ML VIAL IVP ONE (22:45)
[2021-05-10] MEDS ORDERED: PANTOPRAZOLE 40 MG INJ VIAL ONE (22:55)
--- NOTE | 2021-05-10 23:47 | NUR ---
REPORT GIVEN TO IRIS AT THIS TIME. NO OTHER CONCERNS, CLEARED FOR TRASNPORT TO [facility]
[2021-05-11 04:00] VITALS: BP 140/84
[2021-05-11 06:58] LABS: BASOPHILS # (AUTO) 0.1 K/uL (0.00-0.22); BASOPHILS % (AUTO) 0.6 % (0.0-2.0); EOSINOPHILS # (AUTO) 0.1 K/uL (0-0.4); EOSINOPHILS % (AUTO) 0.5 % (0.0-4.0); HEMATOCRIT 27.8 % (36-52); HEMOGLOBIN 9.4 g/dL (12.0-18.0); LYMPHOCYTES # (AUTO) 1.8 K/uL (2.0-11.5); LYMPHOCYTES % (AUTO) 18.2 % (20.5-51.1); MEAN CORPUSCULAR HEMOGLOBIN 30 pg (27-31); MEAN CORPUSCULAR HGB CONC 34 g/dL (33-37); MEAN CORPUSCULAR VOLUME 87.8 fL (80-94); MONOCYTES # (AUTO) 0.9 K/uL (0.8-1.0); MONOCYTES % (AUTO) 9.1 % (1.7-9.3); NEUTROPHILS # (AUTO) 7.2 K/uL (1.8-7.7); NEUTROPHILS % (AUTO) 71.6 % (42.2-75.2); PLATELET COUNT (AUTO) 260 K/uL (140-450); RED BLOOD CELL COUNT(AUTO) 3.16 MIL/uL (4.20-6.10); RED CELL DISTRIBUTION WIDTH 15.3 % (11.6-13.7)
[2021-05-11 07:01] LABS: ALBUMIN 2.8 g/dL (3.4-5.0); ANION GAP 10.6 (8-16); CARBON DIOXIDE 30.1 mmol/L (21-32); CREATININE 0.6 mg/dL (0.6-1.3); POTASSIUM 3.7 mmol/L (3.5-5.1); TOTAL BILIRUBIN 0.4 mg/dL (0.0-1.0)
[2021-05-11] MEDS ORDERED: PANTOPRAZOLE 80 MG in NACL 0.9% 100 ML IVP SCH (07:07)
--- NOTE | 2021-05-11 07:20 | NUR ---
RECEIVED BEDSIDE REPORT FROM POULTRY VACCINATOR NURSE. IV IS INTACT AND PATENT. ALL SAFETY MEASURES IN PLACE. CALL LIGHT WITHIN REACH. PATIENT IS STABLE.
[2021-05-11 08:00] VITALS: BP 155/79
[2021-05-11] MEDS ORDERED: POTASSIUM CHLORIDE 10 MEQ TABER PO PRN (08:55)
[2021-05-11] MEDS ORDERED: ONDANSETRON 4 MG/2 ML VIAL IM/IVP PRN (08:55)
[2021-05-11] MEDS: NACL 0.9% 1,000 ML IV SCH (08:55)
[2021-05-11] MEDS ORDERED: LORazepam 2 MG/ML VIAL IM/IVP PRN (08:55)
[2021-05-11] MEDS ORDERED: MAG SULF 2000 MG/WATER PREMIX 50 ML IV PRN (08:55)
[2021-05-11] MEDS ORDERED: ZOLPIDEM 5 MG TAB PO PRN (08:55)
[2021-05-11] MEDS ORDERED: ACETAMINOPHEN 325 MG TAB PO PRN (08:55)
[2021-05-11] MEDS ORDERED: DOCUSATE SODIUM 100 MG GELCAP PO PRN (08:55)
[2021-05-11] MEDS ORDERED: FAMOTIDINE 20 MG TAB PO SCH (09:00)
[2021-05-11] MEDS ORDERED: LORazepam 2 MG/ML VIAL IVP PRN (09:00)
[2021-05-11] MEDS: FOLIC ACID 1 MG TAB PO SCH (09:23)
[2021-05-11] MEDS: MULTIVITAMIN 1 TAB PO SCH (09:23)
[2021-05-11] MEDS: ATORVASTATIN 20 MG TAB PO SCH (09:23)
[2021-05-11] MEDS: THIAMINE 100 MG TAB PO SCH (09:23)
[2021-05-11] MEDS: DOCUSATE SODIUM 100 MG GELCAP PO SCH ×2 (09:24→20:30)
[2021-05-11 09:25] LABS: CHOL/HDL RATIO 3.5 (1-4.5); THYROID STIMULATING HORMONE 0.58 uIU/mL (0.34-3.74)
[2021-05-11] MEDS: chlordiazePOXIDE 25 MG CAP PO SCH ×3 (09:25→17:54)
[2021-05-11] MEDS: CALCIUM CARBONATE 500 MG TAB PO SCH (09:26)
[2021-05-11] MEDS: MORPHINE SULFATE 2 MG/ML SYR IVP PRN ×2 (11:13→20:32)
[2021-05-11 12:00] VITALS: BP 137/81
--- NOTE | 2021-05-11 12:13 | NUR ---
PT PAIN MED GIVEN PRN AND REASSESSED, MED WAS EFFECTIVE. PT DENIES PAIN.
--- NOTE | 2021-05-11 12:30 | NUR ---
PT TAKEN TO OR FOR EGD. PT IS STABLE
[2021-05-11] MEDS ORDERED: diphenhydrAMINE 50 MG/ML VIAL ONE (12:48)
[2021-05-11] MEDS ORDERED: MIDAZOLAM 5 MG/5 ML VIAL ONE (12:48)
[2021-05-11] MEDS ORDERED: fentaNYL citrate 0.05 MG/ML VIAL ONE (12:48)
[2021-05-11] MEDS ORDERED: MIDAZOLAM 2 MG/2 ML VIAL IVP ONE (13:25)
[2021-05-11] MEDS ORDERED: fentaNYL citrate 0.05 MG/ML VIAL IVP ONE (13:25)
--- NOTE | 2021-05-11 13:30 | NUR ---
PTRETURNED FROM EGD AND XRAY. PT V/S ARE WNL. PT IS BREATHING EVEN AND UNLABORED. RESTING. PT IS STABLE.
--- NOTE | 2021-05-11 14:19 | NUR ---
PATIENT HAS BEEN SCREENED AND CATEGORIZED MODERATE NUTRITION RISK. PATIENT WILL BE SEEN WITHIN 3-5 DAYS OF ADMISSION. 05/11/21 05/15/[address]
--- NOTE | 2021-05-11 15:00 | NUR ---
POST OP V/S ARE WNL. PT IS STABLE.
--- NOTE | 2021-05-11 15:44 | NUR ---
DC PLANNIN YRS OLD MALE PATIENT WAS ADMITTED FROM HOME WITH A DX OF GI BLEED. PATIENT HAS A HX OF ALCOHOL ABUSE , HLD, GERD, CONSTIPATION, PANCREATIC PSEUDOCYST, AND HTN. CXR SHOWED NO ACUTE DISEASE, ANKLE XRAY SHOWED NO FRACTURE. DR KHAN PERFORMED EGD RESULTED SEVER ULCERATIVE ESOPHAGITIS AND RECOMMENDED TO REPEAT EGD IN 3 MONTH. DC PLAN TO GO HOME WHEN STABLE. CM TO FOLLOW Addendum: 05/11/21 at 8779 by Debbie Adams RN DC PLANNING: CALLED [facility] SPOKE WITH [facility] STATED DIDN'T RECEIVE ANY CLINICALS ,FAXED ALL THE CLINICALS TO [phone]. CM TO FOLLOW Addendum: 05/13/21 at 1210 by Debbie Adams RN DC PLANNING: PATIENT HAS AN [facility] FOR PHYSICAL THERAPY FAXED TO [facility], RECEIVED A CALL FROM [facility] CM [phone] STATED [facility] IS CONTRACTED ,FAXED TO [facility] [phone]. CM TO FOLLOW Addendum: 05/13/21 at 1613 by Debbie Adams RN DC PLANNING: RECEIVED A CALL FROM [facility] STATED THEY CAN NOT ACCEPT PATIENT. FAXED TO [facility] , [facility] , [facility] , [facility] , [facility] , AND [facility]. PT CAN BE DC AND WILL FOLLOW UP WITH [facility]. CM TO FOLLOW
[2021-05-11 16:00] VITALS: BP 141/84
[2021-05-11] MEDS: LANSOPRAZOLE 30 MG CAPDR PO SCH (16:06)
[2021-05-11] MEDS: FERROUS SULFATE 325 MG TABEC PO SCH (17:54)
--- NOTE | 2021-05-11 19:20 | NUR ---
ENDORSED PT TO TENSIONING MACHINE OPERATOR NURSE FOR CONTINUITY OF CARE. POC DISCUSSED.
--- NOTE | 2021-05-11 19:30 | NUR ---
REPORT FROM DAY RN, PATIENT DX GIB, CURRENTLY NO ACTIVE BLEEDING NOTED. PATIENT DENIES PAIN AT THIS TIME AND IS EASILY AROUSABLE. MONITOR FOR BLEEDING AND PAIN CONTROL
[2021-05-11 20:00] VITALS: BP 126/69
[2021-05-11] MEDS: lisinopriL 20 MG TAB PO SCH (20:31)
[2021-05-11] MEDS: LACTULOSE 20 GM/30 ML UDC PO SCH (20:36)
[2021-05-12] VITALS: BP 118/68
[2021-05-12] MEDS: NACL 0.9% 1,000 ML IV SCH (02:26)
[2021-05-12] MEDS: MORPHINE SULFATE 2 MG/ML SYR IVP PRN ×3 (02:28→18:29)
[2021-05-12 04:00] VITALS: BP 119/65
[2021-05-12] MEDS ORDERED: PNEUMOCOCCAL VACCINE 23 MCG/0.5 ML VIAL IMVAC SCH (05:00)
[2021-05-12] MEDS: LANSOPRAZOLE 30 MG CAPDR PO SCH ×2 (07:03→17:26)
--- NOTE | 2021-05-12 07:10 | NUR ---
RECEIVED REPORT FROM CRACKING UNIT OPERATOR NURSE FOR CONTINUITY OF CARE. PT BREATHING IS EVEN AND UNLABORED. NO S/S OF DISTRESS NOTED. PT IS ON RA. PT IS ON TELE. PT IS RESTING RIGHT NOW. R HAND IV 22G IN PLACE INTACT AND PATENT. ALL SAFETY MEASURES IN PLACE. PT IS STABLE.
[2021-05-12 07:51] LABS: BASOPHILS % (AUTO) 0.7 % (0.0-2.0); EOSINOPHILS # (AUTO) 0.3 K/uL (0-0.4); EOSINOPHILS % (AUTO) 4.1 % (0.0-4.0); HEMATOCRIT 22.4 % (36-52); HEMOGLOBIN 7.6 g/dL (12.0-18.0); LYMPHOCYTES # (AUTO) 1.7 K/uL (2.0-11.5); LYMPHOCYTES % (AUTO) 26.9 % (20.5-51.1); MEAN CORPUSCULAR HEMOGLOBIN 30 pg (27-31); MEAN CORPUSCULAR HGB CONC 34 g/dL (33-37); MONOCYTES # (AUTO) 0.4 K/uL (0.8-1.0); MONOCYTES % (AUTO) 6.7 % (1.7-9.3); NEUTROPHILS # (AUTO) 3.8 K/uL (1.8-7.7); NEUTROPHILS % (AUTO) 61.6 % (42.2-75.2); PLATELET COUNT (AUTO) 199 K/uL (140-450); RED BLOOD CELL COUNT(AUTO) 2.54 MIL/uL (4.20-6.10); RED CELL DISTRIBUTION WIDTH 15.1 % (11.6-13.7); WHITE BLOOD COUNT (AUTO) 6.2 K/uL (4.8-10.8)
[2021-05-12 07:53] LABS: MAGNESIUM 1.9 mg/dL (1.8-2.4); PHOSPHORUS 3.3 mg/dL (2.5-4.9)
[2021-05-12] MEDS: FERROUS SULFATE 325 MG TABEC PO SCH ×2 (07:54→17:26)
--- NOTE | 2021-05-12 07:54 | NUR ---
PT GIVEN PRN PAIN MED PER MD ORDER. WILL REASSESS.
[2021-05-12 08:00] VITALS: BP 122/53
[2021-05-12 08:02] LABS: ANION GAP 8.7 (8-16); CARBON DIOXIDE 28.7 mmol/L (21-32); CREATININE 0.4 mg/dL (0.6-1.3); POTASSIUM 3.4 mmol/L (3.5-5.1)
[2021-05-12 08:08] LABS: T4 (THYROXINE) 4.9 ug/dL (4.5-12.0)
--- NOTE | 2021-05-12 08:54 | NUR ---
PAIN REASSESSED. PAIN MED EFFECTIVE. PAIN STATES IPAIN WAS DECREASED.
[2021-05-12] MEDS: MULTIVITAMIN 1 TAB PO SCH (09:00)
[2021-05-12] MEDS: DOCUSATE SODIUM 100 MG GELCAP PO SCH ×2 (09:00→20:50)
[2021-05-12] MEDS: ATORVASTATIN 20 MG TAB PO SCH (09:00)
[2021-05-12] MEDS: FOLIC ACID 1 MG TAB PO SCH (09:00)
[2021-05-12] MEDS: THIAMINE 100 MG TAB PO SCH (09:00)
[2021-05-12] MEDS: LACTULOSE 20 GM/30 ML UDC PO SCH ×2 (09:00→20:49)
[2021-05-12] MEDS: CALCIUM CARBONATE 500 MG TAB PO SCH (09:00)
[2021-05-12] MEDS: chlordiazePOXIDE 25 MG CAP PO SCH ×3 (09:00→17:26)
--- NOTE | 2021-05-12 10:04 | NUR ---
PT FEELING ANXIOUS. PT WAS GIVEN PRN PAIN MED FOR ANXIETY PER MD ORDER.
[2021-05-12 11:05] LABS: APPEARANCE,URINE CLEAR (CLEAR); BILIRUBIN,URINE NEGATIVE (NEGATIVE); BLOOD, URINE NEGATIVE (NEGATIVE); COLOR,URINE YELLOW (YELLOW); LEUKOCYTE ESTERASE ,URINE NEGATIVE (NEGATIVE); NITRITE, URINE NEGATIVE (NEGATIVE); PH,URINE 7.5 (5.0-9.0); UGLUCOSE TRACE (NEGATIVE)
[2021-05-12 12:00] VITALS: BP 111/47
--- NOTE | 2021-05-12 12:00 | NUR ---
PT BREATHING IS EVEN AND UNLABORED. NO S/S OF DISTRESS NOTED. PT IS ON RA. PT IS ON TELE. PT IS RESTING RIGHT NOW. ALL SAFETY MEASURES IN PLACE. PT IS STABLE.
[2021-05-12 12:31] LABS: RBC,URINE 0-5 /HPF (0-5); WBC,URINE 0-5 /HPF (0-5)
--- NOTE | 2021-05-12 13:54 | NUR ---
PT IS FEELING ITCHY FOR PAST DAY AND NOW. GIVEN BENADRYL ONCE PER MD ORDER FOR RELIEF.
[2021-05-12 16:00] VITALS: BP 128/65
--- NOTE | 2021-05-12 18:29 | NUR ---
PT IS IN 8/10 PAIN . PAIN MED PRN PER MD ORDER IS GIVEN.
--- NOTE | 2021-05-12 19:34 | NUR ---
ENDORSED PT TO OIL FIELD TECHNICIAN NURSE FOR CONTINUITY OF CARE. POC DISCUSSED.
--- NOTE | 2021-05-12 19:35 | NUR ---
RECEIVED PT FROM AM NURSE FOR CONTINUITY OF CARE. A&O X4. NO S/S OF DISTRESS. BREATHING IS EVEN AND UNLABORED. ON ROOM AIR. SKIN IS DRY AND INTACT. IV R HAND RUNNING NS@60MLS/HR. CALL LIGHT WITHIN REACH. ALL SAFETY MEASURES IN PLACE. WILL CONTINUE TO MONITOR.
[2021-05-12 20:00] VITALS: BP 109/62
--- NOTE | 2021-05-12 20:49 | NUR ---
SCHEDULED MEDICATION GIVEN ORDERED EXCEPT FOR ZESTRIL BP ON THE LOW SIDE 109/62. CHARGE NURSE MADE AWARE AND INSTRUCTED ME TO HOLD THE MEDICATION.
[2021-05-12] MEDS: lisinopriL 20 MG TAB PO SCH (20:50)
--- NOTE | 2021-05-12 23:10 | NUR ---
ROUNDED ON PT. PT SLEEPING.NO S/S OF DISTRESS. CALL LIGHT WITHIN REACH. ALL SAFETY MEASURES IN PLACE. WILL CONTINUE TO MONITOR.
--- NOTE | 2021-05-13 01:20 | NUR ---
ROUNDED ON PT. PT SLEEPING NAD. CALL LIGHT WITHIN REACH. ALL SAFETY MEASURES IN PLACE. WILL CONTINUE TO MONITOR.
--- NOTE | 2021-05-13 03:35 | NUR ---
ROUNDED ON PT. SLEEPING NO S/S OF DISTRESS. CALL LIGHT WITHIN REACH. ALL SAFETY MEASURES IN PLACE.
[2021-05-13 04:00] VITALS: BP 111/57
--- NOTE | 2021-05-13 05:50 | NUR ---
ROUNDED ON PT. PT SLEEPING, NAD. RESPIRATIONS EVEN AND UNLABORED .CALL LIGHT WITHIN REACH. ALL SAFETY MEASURES IN PLACE. WILL CONTINUE TO MONITOR.
[2021-05-13] MEDS: LANSOPRAZOLE 30 MG CAPDR PO SCH (06:47)
[2021-05-13 07:08] LABS: BASOPHILS % (AUTO) 0.7 % (0.0-2.0); EOSINOPHILS # (AUTO) 0.2 K/uL (0-0.4); HEMOGLOBIN 7.7 g/dL (12.0-18.0); LYMPHOCYTES # (AUTO) 1.4 K/uL (2.0-11.5); LYMPHOCYTES % (AUTO) 27.2 % (20.5-51.1); MONOCYTES # (AUTO) 0.3 K/uL (0.8-1.0); NEUTROPHILS # (AUTO) 3.1 K/uL (1.8-7.7); NEUTROPHILS % (AUTO) 61.3 % (42.2-75.2); WHITE BLOOD COUNT (AUTO) 5.1 K/uL (4.8-10.8)
[2021-05-13 07:14] LABS: CARBON DIOXIDE 27.2 mmol/L (21-32); CREATININE 0.5 mg/dL (0.6-1.3); POTASSIUM 3.2 mmol/L (3.5-5.1)
[2021-05-13 07:20] LABS: EOSINOPHILS % (AUTO) 4.5 % (0.0-4.0); MEAN CORPUSCULAR HEMOGLOBIN 30 pg (27-31); MEAN CORPUSCULAR HGB CONC 34 g/dL (33-37); MEAN CORPUSCULAR VOLUME 87.8 fL (80-94); MONOCYTES % (AUTO) 6.3 % (1.7-9.3); PLATELET COUNT (AUTO) 209 K/uL (140-450); RED BLOOD CELL COUNT(AUTO) 2.61 MIL/uL (4.20-6.10); RED CELL DISTRIBUTION WIDTH 14.9 % (11.6-13.7)
--- NOTE | 2021-05-13 07:25 | NUR ---
ENDORSED PT TO AM SHIFT NURSE FOR CONTINUITY OF CARE. PT IS STABLE.
[2021-05-13 07:39] LABS: MAGNESIUM 1.8 mg/dL (1.8-2.4)
[2021-05-13 08:00] VITALS: BP 99/58
[2021-05-13 08:07] LABS: PHOSPHORUS 3.9 mg/dL (2.5-4.9)
[2021-05-13] MEDS: MULTIVITAMIN 1 TAB PO SCH (09:06)
[2021-05-13] MEDS: ATORVASTATIN 20 MG TAB PO SCH (09:06)
[2021-05-13] MEDS: LACTULOSE 20 GM/30 ML UDC PO SCH (09:06)
[2021-05-13] MEDS: FOLIC ACID 1 MG TAB PO SCH (09:07)
[2021-05-13] MEDS: chlordiazePOXIDE 25 MG CAP PO SCH ×2 (09:07→12:52)
[2021-05-13] MEDS: THIAMINE 100 MG TAB PO SCH (09:07)
[2021-05-13] MEDS: CALCIUM CARBONATE 500 MG TAB PO SCH (09:08)
[2021-05-13] MEDS: FERROUS SULFATE 325 MG TABEC PO SCH (09:08)
[2021-05-13] MEDS: DOCUSATE SODIUM 100 MG GELCAP PO SCH (09:08)
--- NOTE | 2021-05-13 10:00 | NUR ---
ADMINISTERED PRN POTASSIUM PER MD ORDER FOR K 3.2.
[2021-05-13] MEDS ORDERED: FER325 PO (10:08)
[2021-05-13] MEDS ORDERED: LANS30EC68 PO (10:08)
[2021-05-13] MEDS ORDERED: DIPH25TA53 PO (10:09)
[2021-05-13] MEDS: MORPHINE SULFATE 2 MG/ML SYR IVP PRN (12:52)
[2021-05-13 14:41] VITALS: BP 110/62
--- NOTE | 2021-05-13 15:24 | NUR ---
RECEIVED DISCHARGE ORDER, PRINTED DISCHARGE INSTRUCTIONS/PACKET GIVEN AND EXPLAINED TO PATIENT. PATIENT VERBALIZED UNDERSTANDING OF ALL DISCHARGE INSTRUCTIONS/PACKET/PRESCRIPTIONS/EDUCATION MATERIALS/FOLLOW UP APPTS. PATIENT INSTRUCTED TO FOLLOW UP WITH PCP IN 1-2 DAYS AND ALSO TO CONTACT PCP/GO TO LOCAL ER FOR ANY RECURRING SYMPTOMS/SOB/DISTRESS. IV SITE TO RH REMOVED, CATH INTACT. DRESSED AND PREPARED FOR DISCHARGE. PER PT FAMILY CANNOT PICK HIM UP SO HE WOULD LIKE TO TAKE THE BUS-BUS PASSES PROVIDED BY [facility]. SIGNED DISCHARGE PACKET PLACED IN CHART, COPY GIVEN TO PATIENT.
--- NOTE | 2021-05-13 16:20 | NUR ---
PATIENT ACCOMPANIED TO MAIN ENTRANCE AND DISCHARGED HOME WITH ALL BELONGINGS INCLUDING DISCHARGE PACKET, CELL PHONE, CELL PHONE HEAD HOLDER, WALLET, AND BACKPACK.
== END 2021-05-13 16:20 | disposition home health service (06) | DRG 243 ==
LOC: MED 19:26 → MTU 23:20
PROC: 0DJ08ZZ Inspection of Upper Intestinal Tract, Via Natural or Artificial Opening Endoscopic (ICD-10-PCS; principal; 2021-05-11 14:10)
DX: K21.01 Gastro-esophageal reflux disease with esophagitis, with bleeding (principal); G92.8 Other toxic encephalopathy; E44.0 Moderate protein-calorie malnutrition; D64.9 Anemia, unspecified; E87.1 Hypo-osmolality and hyponatremia; I10 Essential (primary) hypertension; K44.9 Diaphragmatic hernia without obstruction or gangrene; Z20.822 Contact with and (suspected) exposure to COVID-19; F10.129 Alcohol abuse with intoxication, unspecified; L92.9 Granulomatous disorder of the skin and subcutaneous tissue, unspecified; F32.A Depression, unspecified; E78.5 Hyperlipidemia, unspecified; F17.210 Nicotine dependence, cigarettes, uncomplicated; Z79.899 Other long term (current) drug therapy; Z71.41 Alcohol abuse counseling and surveillance of alcoholic; Z68.20 Body mass index [BMI] 20.0-20.9, adult
CPT/HCPCS: 36415; 71045; 73610; 80048; 80053; 81001; 82150; 83036; 83690; 83735; 84100; 84134; 84436; 84443; 85025; 85610; 85730; 86886; 86900; 86901; 87081; 93005; 96361; 96365; 96375; 96376; 97116; 97163-GP; 99285; C9113; G0482; J1200; J2060; J2250; J2270; J2405; J3010; J7030; Q0092; Q0163

== ENCOUNTER 2021-10-02 03:24 | Emergency (ER) | payer OTHER ==
[~2021-10-02 03:24] MED LIST changes: +DIPH25TA53 PO; +FER325 PO; -IBUP-2213 PO; +LANS30EC68 PO; -MAGN400T61 PO; -POTA10TA70 PO
--- NOTE | 2021-10-02 03:29 | NUR ---
CALLED TO TRIAGE. NO ANSWER
--- NOTE | 2021-10-02 03:39 | NUR ---
CALLED TO TRIAGE, NO ANSWER
--- NOTE | 2021-10-02 03:54 | NUR ---
CALLED TO TRIAGE, NO ANSWER. LWBS
== END 2021-10-02 03:29 | disposition left against medical advice (07) ==
LOC: MED 03:24
DX: Z53.21 Procedure and treatment not carried out due to patient leaving prior to being seen by health care provider (principal)

== ENCOUNTER 2021-10-02 03:58 | Emergency (ER) | payer OTHER ==
[~2021-10-02] VITALS: Ht 177.8 cm; Wt 68.0 kg
[2021-10-02] MEDS ORDERED: ALUMINUM HYD/MAG/SIMETHICONE 30 ML UDC PO ONE (05:10)
[2021-10-02] MEDS ORDERED: ONDANSETRON 4 MG TAB PO ONE (05:10)
--- NOTE | 2021-10-02 06:09 | NUR ---
XRAY AT BEDSIDE
[2021-10-02] MEDS ORDERED: ALUMINUM HYD/MAG/SIMETHICONE 30 ML UDC ONE (06:37)
[2021-10-02] MEDS ORDERED: ONDANSETRON 4 MG ODT ONE (06:37)
--- NOTE | 2021-10-02 06:58 | NUR ---
60 Y/O MALE BIBS, C/O ABD PAIN X2WKS. PT STATES THE PAIN IS 10/10 IN THE UMBILICUS REG. DENIES N/V/D. PT CLAIMS DUE TO THE PAIN HE IS UNABLE TO EAT AND DRINKS ONLY IN SIPS. PT STATED HE HAD A COLONOSCOPY AND ENDOSCOPY WHICH HE NEEDED TO FAST LAST WEEK AND HAS NOT EATEN OR HAD A BM SINCE. HE MENTIONED THAT HE WAS WEAK FROM NOT EATING. PT WAS ADMITTED TO [facility] ON MAY 10 FOR GI BLEED. PT HAS WEAK LEGS DUE TO TENDONITIS. PT HAS UNLABORED BREATHING AND IS SPEAKING IN FULL SENTENCES. PT SEATED IN BED WITH HOB RAISED, BED IN LOWESTB SETTING AND RAILS UP X2. HX: TENDONITIS, HTN, AND DEPRESSION NKA MEDS: LISINOPRIL, TYLENOL, MEDICATION FOR TENDONITIS
--- NOTE | 2021-10-02 07:03 | NUR ---
BLOOD SAMPLE OBTAINED AND WALKED TO LAB
--- NOTE | 2021-10-02 07:07 | NUR ---
PT TAKEN TO RADIOLOGY
[2021-10-02 07:10] LABS: BASOPHILS % (AUTO) 0.5 % (0.0-2.0); EOSINOPHILS % (AUTO) 0.1 % (0.0-4.0); HEMATOCRIT 46.5 % (36-52); HEMOGLOBIN 15.3 g/dL (12.0-18.0); LYMPHOCYTES # (AUTO) 0.7 K/uL (2.0-11.5); LYMPHOCYTES % (AUTO) 8.1 % (20.5-51.1); MEAN CORPUSCULAR HEMOGLOBIN 26 pg (27-31); MEAN CORPUSCULAR HGB CONC 33 g/dL (33-37); MEAN CORPUSCULAR VOLUME 79.3 fL (80-94); MONOCYTES # (AUTO) 0.4 K/uL (0.8-1.0); MONOCYTES % (AUTO) 5.2 % (1.7-9.3); NEUTROPHILS # (AUTO) 7.1 K/uL (1.8-7.7); NEUTROPHILS % (AUTO) 86.1 % (42.2-75.2); PLATELET COUNT (AUTO) 205 K/uL (140-450); RED BLOOD CELL COUNT(AUTO) 5.86 MIL/uL (4.20-6.10); WHITE BLOOD COUNT (AUTO) 8.3 K/uL (4.8-10.8)
--- NOTE | 2021-10-02 07:23 | NUR ---
TRANFER OF CARE REPORT GIVEN TO KAYLENE POPE
[2021-10-02 07:38] LABS: ALBUMIN 4.3 g/dL (3.4-5.0); ANION GAP 21.9 (8-16); CARBON DIOXIDE 19.6 mmol/L (21-32); CREATININE 0.7 mg/dL (0.6-1.3); POTASSIUM 3.5 mmol/L (3.5-5.1); TOTAL BILIRUBIN 1.6 mg/dL (0.0-1.0)
--- NOTE | 2021-10-02 09:30 | NUR ---
Patient discharged with v/s stable. Written and verbal after care instructions given and explained. Patient verbalized understanding. Ambulatory with steady gait. All questions addressed prior to discharge. Advised to follow up with PMD.
== END 2021-10-02 09:30 | disposition home or self-care (01) ==
LOC: MED 03:58
DX: R10.13 Epigastric pain (principal); R11.10 Vomiting, unspecified; Z79.899 Other long term (current) drug therapy
CPT/HCPCS: 36415; 71045; 74018; 74176; 80053; 83690; 85025; 99285; Q0092; Q0162

== ENCOUNTER 2021-11-17 16:42 | Emergency (ER) | payer OTHER ==
[~2021-11-17] VITALS: Ht 177.8 cm; Wt 67.4 kg
[2021-11-17 16:52] VITALS: BP 148/84
--- NOTE | 2021-11-17 17:10 | NUR ---
WALKED IN C/O RASH ALL OVER BODY INCLUDING TRUNK, B/L LOWER AND UPPER EXT. DENIES THROAT TIGHTNESS OR SOB. AAOX4, AMBULATORY, DENIES ANY KNOWN FOOD CONSUMPTION OR KNOWN CAUSE FOR THE REACTION. DENIES ANY PAIN. VSS, NAD.
[2021-11-17] MEDS ORDERED: LORA10TA60 PO (17:39)
[2021-11-17] MEDS ORDERED: [UNRECOGNIZED DRUG - CODE] TP (17:39)
[2021-11-17 17:45] VITALS: BP 137/88
== END 2021-11-17 17:45 | disposition home or self-care (01) ==
LOC: MED 16:42
DX: L20.9 Atopic dermatitis, unspecified (principal); I10 Essential (primary) hypertension; Z79.899 Other long term (current) drug therapy
CPT/HCPCS: 99282

== ENCOUNTER 2023-04-05 15:14 | Emergency (ER) | payer OTHER ==
[~2023-04-05] VITALS: Ht 172.7 cm; Wt 65.8 kg
[~2023-04-05 15:14] MED LIST changes: +LORA10TA60 PO; +[UNRECOGNIZED DRUG - CODE] TP
[2023-04-05 15:22] VITALS: BP 145/77; PULSE 87; RESP 17; TEMP 97.6; O2SAT 99
[2023-04-05 16:56] VITALS: BP 145/77; PULSE 87; RESP 17; TEMP 97.6; O2SAT 99
== END 2023-04-05 16:56 ==
LOC: MED 15:14
DX: Z02.89 Encounter for other administrative examinations (principal); I10 Essential (primary) hypertension; Z79.899 Other long term (current) drug therapy; V89.2XXA Person injured in unspecified motor-vehicle accident, traffic, initial encounter; Y93.89 Activity, other specified; Y92.410 Unspecified street and highway as the place of occurrence of the external cause; Y99.8 Other external cause status
CPT/HCPCS: 99283